=== PATIENT | female | born 1945 | race Caucasian/White ===

== ENCOUNTER → 2018-05-01 15:11 | Outpatient (CLI) | payer MEDICARE, SELFPAY | PROVIDERS: Family Provider Family Medicine; PCP Family Medicine; Visit Provider Family Medicine | DX: Z78.0 Asymptomatic menopausal state (principal); Z13.820 Encounter for screening for osteoporosis | CPT/HCPCS: 77080 ==

== ENCOUNTER → 2018-05-07 15:59 | Outpatient (CLI) | payer MEDICARE, SELFPAY | PROVIDERS: Family Provider Family Medicine; PCP Family Medicine; Visit Provider Family Medicine | DX: Z12.31 Encounter for screening mammogram for malignant neoplasm of breast (principal) | CPT/HCPCS: 77063; 77067 ==

== ENCOUNTER → 2018-05-11 08:02 | Outpatient (CLI) | payer MEDICARE, SELFPAY ==
[2018-05-11 09:18] LABS: AST(SGOT) 17 U/L (15-37); Alanine Aminotransfer ALT/SGPT 20 U/L (13-56); Albumin, Serum 3.7 g/dL (3.2-5.0); Alkaline Phosphatase 86 U/L (45-117); Anion Gap 9 (5-15); BUN 14 mg/dL (7-18); BUN/Creat Ratio 12.5 RATIO (10-20); Calcium,Total 8.7 mg/dL (8.5-10.1); Chloride 107 mmol/L (98-107); Cholesterol 154 mg/dL (200); Creatinine, Serum 1.12 mg/dL (0.55-1.02); EST Glomerular Filtration Rate 50 mL/min (>60); Est Glom Filt Rate - Afr Amer 61 mL/min (>60); Globulin 3.8 g/dL (2.2-4.2); Glucose 100 mg/dL (74-106); High Density Lipoprotein 42 mg/dL; Potassium 4.3 mmol/L (3.5-5.1); Protein, Total 7.5 g/dL (6.4-8.2); Sodium Level 143 mmol/L (136-145); Triglycerides 120 mg/dL; Very Low Density Lipoprotein 24 mg/dL (5-40)
== END ==
PROVIDERS: Family Provider Family Medicine; PCP Family Medicine; Visit Provider Family Medicine
DX: E66.3 Overweight (principal)
CPT/HCPCS: 36415; 80053; 80061

== ENCOUNTER → 2018-05-14 15:22 | Outpatient (CLI) | payer MEDICARE, SELFPAY | PROVIDERS: Family Provider Family Medicine; PCP Family Medicine; Visit Provider Family Medicine | DX: R92.8 Other abnormal and inconclusive findings on diagnostic imaging of breast (principal) | CPT/HCPCS: 76642 ==

== ENCOUNTER → 2019-05-02 | Outpatient (CLI) | payer MEDICARE, SELFPAY ==
[2019-05-02 09:28] LABS: ALB/GLOB Ratio 1.1 RATIO (0.9-2.4); AST(SGOT) 20 U/L (15-37); Alanine Aminotransfer ALT/SGPT 21 U/L (13-56); Albumin, Serum 3.8 g/dL (3.2-5.0); Alkaline Phosphatase 97 U/L (45-117); Anion Gap 9 (5-15); BUN 15 mg/dL (7-18); BUN/Creat Ratio 13.8 RATIO (10-20); Calcium,Total 8.9 mg/dL (8.5-10.1); Chloride 106 mmol/L (98-107); Cholesterol 143 mg/dL (200); Creatinine, Serum 1.09 mg/dL (0.55-1.02); EST Glomerular Filtration Rate 52 mL/min (>60); Est Glom Filt Rate - Afr Amer 63 mL/min (>60); Globulin 3.5 g/dL (2.2-4.2); Glucose 100 mg/dL (74-106); High Density Lipoprotein 44 mg/dL; Potassium 4.2 mmol/L (3.5-5.1); Protein, Total 7.3 g/dL (6.4-8.2); Sodium Level 143 mmol/L (136-145); Triglycerides 108 mg/dL; Very Low Density Lipoprotein 22 mg/dL (5-40)
== END | disposition home or self-care (01) ==
PROVIDERS: Family Provider Family Medicine; PCP Family Medicine; Referring Provider Family Medicine; Visit Provider Family Medicine
DX: Z00.00 Encounter for general adult medical examination without abnormal findings (principal); E66.01 Morbid (severe) obesity due to excess calories; Z13.6 Encounter for screening for cardiovascular disorders
CPT/HCPCS: 36415; 80053; 80061

== ENCOUNTER → 2019-05-08 | Outpatient (CLI) | payer MEDICARE, SELFPAY ==
--- NOTE | 2019-05-08 14:45 | BI_ITS ---
MAMMOGRAPHY - BILATERAL SCREENING REASON FOR EXAM: Female, 74 years old. Routine annual screening examination. PERTINENT HISTORY: Sister with breast cancer. TECHNIQUE: Digital bilateral breast arnel (3D mammographic acquisition) in the CC and MLO projections. 2-D mediolateral oblique (MLO) and craniocaudad (CC) views of both breasts were obtained. CAD: Full Field Digital Mammography with Computer Added Detection was performed. COMPARISON: Comparison is made with prior examination dated May 07, 2018 and March 24, 2016. FINDINGS: Breast Composition: There are scattered areas of fibroglandular density. There are no dominant masses or suspicious calcifications. Stable well-defined 1.2 cm x 1 cm nodule in the superior slightly medial retroareolar region of the right breast. On recent sonogram, this was demonstrated to be a small cyst. No other significant abnormalities are identified. There has been no significant change since the prior study. BI/SCREEN MAMM (CAD) W/ARNEL BILAT IMPRESSION: Stable bilateral screening mammogram. Yearly follow-up mammogram recommended. (A) ASSESSMENT CATEGORY: BIRADS Category 2: Benign. A letter regarding these results will be sent to the patient by the facility within 30 days. Approximately 10% of breast cancers are not detected by mammography. A normal mammogram should not delay biopsy of a clinically suspicious abnormality. [id number] Electronically Signed: Hernandez Moran, at 7:44 EDT , Service support ,
== END | disposition home or self-care (01) ==
LOC: OPBI 14:43
PROVIDERS: Family Provider Family Medicine; PCP Family Medicine; Referring Provider Family Medicine; Visit Provider Family Medicine
DX: Z12.31 Encounter for screening mammogram for malignant neoplasm of breast (principal)
CPT/HCPCS: 77063; 77067

== ENCOUNTER → 2020-06-30 08:40 | Outpatient (CLI) | payer MEDICARE, SELFPAY ==
[2020-06-30 09:27] LABS: AST(SGOT) 20 U/L (15-37); Alanine Aminotransfer ALT/SGPT 25 U/L (13-56); Albumin, Serum 3.9 g/dL (3.2-5.0); Alkaline Phosphatase 107 U/L (45-117); Anion Gap 3 (5-15); BUN 17 mg/dL (7-18); BUN/Creat Ratio 15.6 RATIO (10-20); Calcium,Total 9.1 mg/dL (8.5-10.1); Chloride 107 mmol/L (98-107); Cholesterol 159 mg/dL (200); Creatinine, Serum 1.09 mg/dL (0.55-1.02); EST Glomerular Filtration Rate 52 mL/min (>60); Est Glom Filt Rate - Afr Amer 63 mL/min (>60); Globulin 4.1 g/dL (2.2-4.2); Glucose 100 mg/dL (74-106); High Density Lipoprotein 53 mg/dL; Potassium 4.2 mmol/L (3.5-5.1); Sodium Level 139 mmol/L (136-145); Triglycerides 92 mg/dL; Very Low Density Lipoprotein 18 mg/dL (5-40)
== END ==
PROVIDERS: PCP Family Medicine; Referring Provider Family Medicine; Visit Provider Family Medicine
DX: Z00.00 Encounter for general adult medical examination without abnormal findings (principal)
CPT/HCPCS: 36415; 80053; 80061

== ENCOUNTER → 2020-07-14 12:05 | Outpatient (CLI) | payer MEDICARE, SELFPAY ==
--- NOTE | 2020-07-14 12:08 | BI_ITS ---
MAMMOGRAPHY - BILATERAL SCREENING REASON FOR EXAM: Female, 75 years old. Routine annual screening examination. PERTINENT HISTORY: Sister with breast cancer. TECHNIQUE: Digital bilateral breast arnel (3D mammographic acquisition) in the CC and MLO projections. 2-D mediolateral oblique (MLO) and craniocaudad (CC) views of both breasts were obtained. CAD: Full Field Digital Mammography with Computer Added Detection was performed. COMPARISON: Comparison is made with prior study dated 05/08/2019 and 05/07/2018. FINDINGS: Breast Composition: There are scattered areas of fibroglandular density. There are no dominant masses or suspicious calcifications. Stable well-defined 1.2 cm x 1 cm nodule in the superior slightly medial retroareolar region of the right breast. On prior sonogram, this was demonstrated to be a small cyst. No other significant abnormalities are identified. There has been no significant change since the prior study. BI/SCREEN MAMM (CAD) W/ARNEL BILAT IMPRESSION: Stable bilateral screening mammogram. Yearly follow-up mammogram recommended. (A) ASSESSMENT CATEGORY: BIRADS Category 2: Benign. A letter regarding these results will be sent to the patient by the facility within 30 days. Approximately 10% of breast cancers are not detected by mammography. A normal mammogram should not delay biopsy of a clinically suspicious abnormality. [id number] Electronically Signed: Hernandez Moran, at 13:03 EDT , Service support ,
--- NOTE | 2020-07-14 12:36 | BD_ITS ---
STUDY: DUAL ENERGY X-RAY ABSORPTIOMETRY / DXA REASON FOR EXAM: Female, 75 years old. DREDGE DECKHAND- SURGICAL EARLY AT 40 YRS OLD -- TAKES MULTIVITAMIN -- DOES NO EXERCISE -- HX OF PARTIAL COLON REMOVED -- PETE OF 5 INCHES TECHNIQUE: Bone Mineral Density (BMD) measurements of lumbar spine and bilateral hips were obtained. COMPARISON: Comparison is made with prior study dated 05/01/2018. FINDINGS: Lumbar Spine (L1-L4): g/cm2 (1.534) / T-score (3.0) / Z-score (4.8) Findings are suggestive of normal bone density with a low fracture risk. Left Femur Total: g/cm2 (1.193) / T-score (1.5) / Z-score (3.3) Left Femoral Neck: g/cm2 (1.254) / T-score (1.6) / Z-score (3.6) Right Femur Total: g/cm2 (1.000) / T-score (-0.1) / Z-score (1.8) Right Femoral Neck: g/cm2 (1.081) / T-score (0.3) / Z-score (2.3) BD/Dexa Bone Density Study IMPRESSION: The patient is considered normal as outlined below according to World Epi Organization (WHO) criteria with a low fracture risk. There has been improvement of bone density since the previous examination. Reference Information: The T-score is the number of standard deviations above or below the standard which is normal for young adults at their peak bone mineral density. The World Health Organization (WHO) interprets the T-scores as follows: Above -1 Normal bone density Between -1 and -2.5 Osteopenia Equal to / or below -2.5 Osteoporosis As a practical clinical guideline, osteopenia may be graded as follows: Mild -1 through -1.5 Moderate -1.6 through -2.0 Severe -2.1 through -2.4 The Z-score is the number of standard deviations above or below age-matched controls. A Z-score of less than -1.5 would be considered abnormal. References: 1. NIH Osteoporosis and Related Bone Diseases www osteo.org 2. International Society for Clinical Densitometry www iscd.org 3. National Osteoporosis Foundation www nof.org Electronically Signed: Hernandez Moran, at 8:52 EDT , Service support ,
== END ==
PROVIDERS: PCP Family Medicine; Referring Provider Family Medicine; Visit Provider Family Medicine
DX: Z00.00 Encounter for general adult medical examination without abnormal findings (principal); M81.0 Age-related osteoporosis without current pathological fracture; Z12.31 Encounter for screening mammogram for malignant neoplasm of breast
CPT/HCPCS: 77063; 77067; 77080

== ENCOUNTER → 2021-07-07 09:42 | Outpatient (CLI) | payer MEDICARE, SELFPAY ==
[2021-07-07 11:15] LABS: ALB/GLOB Ratio 0.9 RATIO (0.9-2.4); AST(SGOT) 15 U/L (15-37); Alanine Aminotransfer ALT/SGPT 18 U/L (13-56); Albumin, Serum 3.4 g/dL (3.2-5.0); Alkaline Phosphatase 109 U/L (45-117); Anion Gap 6 (5-15); BUN 16 mg/dL (7-18); BUN/Creat Ratio 15.4 RATIO (10-20); Calcium,Total 8.8 mg/dL (8.5-10.1); Chloride 107 mmol/L (98-107); Cholesterol 147 mg/dL (200); Creatinine, Serum 1.04 mg/dL (0.55-1.02); EST Glomerular Filtration Rate 54 mL/min (>60); Est Glom Filt Rate - Afr Amer 66 mL/min (>60); Globulin 3.8 g/dL (2.2-4.2); Glucose 96 mg/dL (74-106); High Density Lipoprotein 47 mg/dL; Potassium 3.8 mmol/L (3.5-5.1); Protein, Total 7.2 g/dL (6.4-8.2); Sodium Level 142 mmol/L (136-145); Triglycerides 78 mg/dL; Very Low Density Lipoprotein 16 mg/dL (5-40)
== END ==
PROVIDERS: PCP Family Medicine; Referring Provider Family Medicine; Visit Provider Family Medicine
DX: Z00.00 Encounter for general adult medical examination without abnormal findings (principal); Z13.6 Encounter for screening for cardiovascular disorders
CPT/HCPCS: 36415; 80053; 80061

== ENCOUNTER → 2022-07-11 | Outpatient (CLI) | payer MEDICARE, SELFPAY ==
[2022-07-11 10:30] LABS: ALB/GLOB Ratio 0.9 RATIO (0.9-2.4); AST(SGOT) 19 U/L (15-37); Alanine Aminotransfer ALT/SGPT 18 U/L (13-56); Albumin, Serum 3.6 g/dL (3.2-5.0); Alkaline Phosphatase 117 U/L (45-117); Anion Gap 6 (5-15); BUN 18 mg/dL (7-18); BUN/Creat Ratio 19.6 RATIO (10-20); Calcium,Total 9.2 mg/dL (8.5-10.1); Chloride 106 mmol/L (98-107); Cholesterol 153 mg/dL (200); Creatinine, Serum 0.92 mg/dL (0.55-1.02); EST Glomerular Filtration Rate 63 mL/min (>60); Est Glom Filt Rate - Afr Amer 76 mL/min (>60); Glucose 109 mg/dL (74-106); High Density Lipoprotein 53 mg/dL; Potassium 3.9 mmol/L (3.5-5.1); Protein, Total 7.6 g/dL (6.4-8.2); Sodium Level 140 mmol/L (136-145); Triglycerides 87 mg/dL; Very Low Density Lipoprotein 17 mg/dL (5-40)
[2022-07-11 11:52] LABS: Hepatitis C Antibody Non-Reactive (Nonreactive)
== END | disposition home or self-care (01) ==
LOC: LAB 08:54
PROVIDERS: PCP Family Medicine; Visit Provider Family Medicine
DX: Z00.00 Encounter for general adult medical examination without abnormal findings (principal); Z11.59 Encounter for screening for other viral diseases; Z13.6 Encounter for screening for cardiovascular disorders
CPT/HCPCS: 36415; 80053; 80061; 86803

== ENCOUNTER → 2022-07-12 | Outpatient (CLI) | payer MEDICARE, SELFPAY ==
--- NOTE | 2022-07-12 10:38 | ECHOD_ITS ---
Reason For Study: WORSENING MURMUR Procedure This was a 2D Doppler, Color Flow transthoracic echocardiogram. Exam performed in department. Left Ventricle Normal LV size. Severe concentric left ventricular hypertrophy. Left ventricular systolic function is hyperdynamic. The estimated ejection fraction is 75 %. Diastolic function is indeterminate. No regional wall motion abnormalities noted. Right Ventricle Normal RV size. Normal systolic function. Atria Normal left atrium. Normal right atrium. No doppler evidence for ASD. Mitral Valve There is no mitral annular calcification. Normal mitral valve. The mitral papillary muscle appears thickened and/or calcified. Trivial mitral valve insufficiency. Tricuspid Valve Normal tricuspid valve. Mild tricuspid valve insufficiency. Right ventricular systolic pressure estimated to be 33 mmHg. Aortic Valve Trisinus/trileaflet aortic valve. Mild focal aortic valve calcification. Pulmonic Valve The pulmonic valve is not well visualized. Great Vessels Normal sized aortic root. Pericardium/Pleural Small pericardial effusion. There are no echocardiographic indications of cardiac tamponade. MMode/2D Measurements & Calculations IVSd: 1.8 cm Ao root diam: 3.3 cm LAV(MOD-bp): 45.1 ml LVPWd: 1.8 cm LAV(MOD-bp) Indexed: 24.4 ml/m2 LAV(MOD-sp2): 44.6 ml LAV(MOD-sp4): 45.3 ml SV(MOD-sp4): 37.8 ml SV(sp4-el): 43.7 ml LVAd ap4: 22.4 cm2 LVLd ap4: 7.2 cm EDV(MOD-sp4): 55.5 ml EDV(sp4-el): 58.9 ml LVAs ap4: 10.3 cm2 LVLs ap4: 6.0 cm ESV(MOD-sp4): 17.6 ml ESV(sp4-el): 15.2 ml EF(MOD-sp4): 68.2 % EF(sp4-el): 74.2 % LA A4 area: 17.4 cm2 RA A4 area: 12.4 cm2 Time Measurements MV dec time: 0.21 sec Doppler Measurements & Calculations MV E max luther: 48.2 cm/sec Med Peak E' Luther: 6.9 cm/sec MV V2 max: 83.5 cm/sec MV A max luther: 74.2 cm/sec E/E' med: 6.9 MV max P.8 mmHg MV E/A: 0.65 MV V2 mean: 55.0 cm/sec MV mean P.3 mmHg MV V2 VTI: 27.2 cm MV dec slope: 232.2 cm/sec2 Ao V2 max: 114.0 cm/sec LV V1 max: 95.9 cm/sec Ao max P.2 mmHg LV V1 max P.7 mmHg Ao V2 mean: 76.1 cm/sec LV V1 mean P.7 mmHg Ao mean P.7 mmHg LV V1 mean: 59.7 cm/sec Ao V2 VTI: 21.6 cm LV V1 VTI: 18.5 cm PA V2 max: 114.3 cm/sec TR max luther: 273.3 cm/sec TR max P.9 mmHg ECHO/Echo Complete Interpretation Summary Left ventricular systolic function is hyperdynamic. The estimated ejection fraction is 75 %. Severe concentric left ventricular hypertrophy. The mitral papillary muscle appears thickened and/or calcified. Trivial mitral valve insufficiency. Mild tricuspid valve insufficiency. Mild focal aortic valve calcification. Small pericardial effusion. There are no echocardiographic indications of cardiac tamponade. Right ventricular systolic pressure estimated to be 33 mmHg. Diastolic function is indeterminate. Ordering Physician: Jodie Hussein Referring Physician: Jodie Hussein Performed By: Kalani Grimes RCS
== END | disposition home or self-care (01) ==
PROVIDERS: PCP Family Medicine; Referring Provider Family Medicine; Visit Provider Family Medicine
DX: R01.1 Cardiac murmur, unspecified (principal)
CPT/HCPCS: 93306

== ENCOUNTER → 2023-07-17 | Outpatient (CLI) | payer MEDICARE, SELFPAY ==
[2023-07-17 11:29] LABS: AST(SGOT) 20 U/L (15-37); Alanine Aminotransfer ALT/SGPT 18 U/L (13-56); Albumin, Serum 3.7 g/dL (3.2-5.0); Alkaline Phosphatase 111 U/L (45-117); Anion Gap 5 (5-15); BUN 16 mg/dL (7-18); BUN/Creat Ratio 16.1 RATIO (10-20); Calcium,Total 8.7 mg/dL (8.5-10.1); Chloride 108 mmol/L (98-107); Cholesterol 146 mg/dL (200); Creatinine, Serum 0.99 mg/dL (0.55-1.02); EST Glomerular Filtration Rate 57 mL/min (>60); Est Glom Filt Rate - Afr Amer 69 mL/min (>60); Globulin 3.7 g/dL (2.2-4.2); Glucose 98 mg/dL (74-106); High Density Lipoprotein 52 mg/dL; Potassium 3.8 mmol/L (3.5-5.1); Protein, Total 7.4 g/dL (6.4-8.2); Sodium Level 141 mmol/L (136-145); Triglycerides 99 mg/dL; Very Low Density Lipoprotein 20 mg/dL (5-40)
== END | disposition home or self-care (01) ==
LOC: LAB 09:44
PROVIDERS: PCP Family Medicine; Referring Provider Family Medicine; Visit Provider Family Medicine
DX: Z00.00 Encounter for general adult medical examination without abnormal findings (principal); Z13.6 Encounter for screening for cardiovascular disorders; Z13.1 Encounter for screening for diabetes mellitus
CPT/HCPCS: 36415; 80053; 80061

== ENCOUNTER → 2023-08-01 | Outpatient (CLI) | payer MEDICARE, SELFPAY ==
--- NOTE | 2023-08-01 10:47 | BD_ITS ---
STUDY: DUAL ENERGY X-RAY ABSORPTIOMETRY / DXA REASON FOR EXAM: Female, 78 years old. [id number] TECHNIQUE: Bone Mineral Density (BMD) measurements of lumbar spine and bilateral hips were obtained. COMPARISON: Comparison is made with prior study July 14, 2020. FINDINGS: Lumbar Spine (L1-L4): g/cm2 (1.426) / T-score (3.4) / Z-score (6.1) Findings are suggestive of normal bone density with a low fracture risk. Left Femur Total: g/cm2 (0.973) / T-score (0.3) / Z-score (2.3) Left Femoral Neck: g/cm2 (0.928) / T-score (0.7) / Z-score (3.0) Right Femur Total: g/cm2 (0.969) / T-score (0.2) / Z-score (2.3) Right Femoral Neck: g/cm2 (0.867) / T-score (0.2) / Z-score (2.5) The T-Scores on the most recent prior examination were: Lumbar Spine (L1-L4): There has been improvement of bone density since the previous examination. Left Femur Total: which represents a worsening of 13.3%. Right Femur Total: which represents an improvement of 3.7%. BD/Dexa Bone Density Study IMPRESSION: The patient is considered normal as outlined below according to World Epi Organization (WHO) criteria with a low fracture risk. There has been improvement of bone density since the previous examination. Reference Information: The T-score is the number of standard deviations above or below the standard which is normal for young adults at their peak bone mineral density. The World Health Organization (WHO) interprets the T-scores as follows: Above -1 Normal bone density Between -1 and -2.5 Osteopenia Equal to / or below -2.5 Osteoporosis As a practical clinical guideline, osteopenia may be graded as follows: Mild -1 through -1.5 Moderate -1.6 through -2.0 Severe -2.1 through -2.4 The Z-score is the number of standard deviations above or below age-matched controls. A Z-score of less than -1.5 would be considered abnormal. References: 1. NIH Osteoporosis and Related Bone Diseases www osteo.org 2. International Society for Clinical Densitometry www iscd.org 3. National Osteoporosis Foundation www nof.org Electronically Signed: Hernandez Moran MD at 11:05 EST ,
== END | disposition home or self-care (01) ==
LOC: OPBD 10:40
PROVIDERS: PCP Family Medicine; Referring Provider Family Medicine; Visit Provider Family Medicine
DX: Z13.820 Encounter for screening for osteoporosis (principal); Z78.0 Asymptomatic menopausal state
CPT/HCPCS: 77080

== ENCOUNTER 2023-08-12 13:42 | Emergency (ER) | payer MEDICARE, SELFPAY ==
[2023-08-12 13:43] VITALS: BP 148/91; PULSE 90; RESP 18; TEMP 36.1; O2SAT 97; BMI 42.2
--- NOTE | 2023-08-12 14:00 | EDS_ITS ---
HPI HPI - URI History of Present Illness Chief Complaint: Nosebleed Informant: patient and EMS Narrative Narrative: 78-year-old female presenting with an acute nosebleed that started spontaneously, she states she wiped and there was blood and then the bleeding became a little worse, left-sided, she states she worked on trying to get it to stop for 10 minutes before she called an ambulance. She is on no blood thinners or antiplatelet medications. States she started having cold symptoms 2 days ago, and got some Robitussin with a decongestant that I had to show my ID for. ROS ROS ED Constitutional Constitutional ED: Denies chills or fever(s) ENT ENT ED: Reports epistaxis, nasal congestion, rhinorrhea and sore throat Cardiovascular Cardiovascular: Denies chest pain or palpitations Respiratory/Chest Respiratory/Chest: Reports cough; Denies dyspnea Gastrointestinal Gastrointestinal: Denies abdominal pain, diarrhea, nausea or vomiting Genitourinary Genitourinary ED: Denies dysuria or hematuria Musculoskeletal Musculoskeletal: Denies myalgias or neck pain Integumentary Denies abscess or rash Neurologic Neurologic: Denies headache(s), paresthesias or weakness Psychiatric Psychiatric: Denies depression or suicidal thoughts Endocrine Endocrinology: Denies polydipsia or polyuria PFSH PFSH Medical History Abnormal echocardiogram Endometrial cancer Glaucoma Obesity (BMI 30-39.9) Osteoporosis Home Medications multivitamin (Daily Multiple tablet) 1 ea PO DAILY 06/09/15 [History Last Taken Unknown] diphenhydramine HCl 25 mg capsule (Benadryl) 25 mg PO TID PRN 09/21/22 [History Last Taken Unknown] turmeric root extract 500 mg capsule 500 mg PO DAILY 09/21/22 [History Last T aken Unknown] vit C 250 mg-vit E 90 mg-zinc 40 mg-copper 1 [id number] capsule (PreserVision AREDS-2) 1 tab PO BID 09/21/22 [History Last Taken Unknown] antiarthritic combination no.2 900 mg tablet (glucosamine-chondroitin) 900 mg PO BID 10/05/22 [History Last Taken Unknown] Allergy/AdvReac Type Severity Reaction Status Date / Time No Known Allergies Allergy Verified 09/21/22 10:05 Family History Sister Cancer Sister Cancer Father Diabetes Surgical History History of cholecystectomy (~10/2009) History of colon surgery (~11/19/09) History of hysterectomy History of ileostomy (03/18/10) Social History Smoking Status: Never smoker alcohol intake: never substance use type: does not use caffeine: No EXAM Physical Exam Const Vital Signs: 08/12/23 13:43 Temperature 97 F L Temperature Source Temporal Pulse Rate 90 Respiratory Rate 18 Blood Pressure 148/91 H Blood Pressure Mean 110 Pulse Ox 97 Oxygen Delivery Method Room Air Positive well nourished and well developed General Appearance ED: well developed and NAD HEENT Reports moist mucous membranes HEENT Narrative: Normal intraoral exam no blood or active bleeding posterior oropharynx. Blood in the left naris, none on the right. No active bleeding. normocephalic and atraumatic Throat: Negative for posterior oropharynx abnormal Eyes PERRL and EOMs intact bilaterally Neck no lymphadenopathy, supple and no meningeal signs Resp normal respiratory effort and clear to auscultation bilaterally Cardio no murmurs Rate: regular rate Rhythm: regular rhythm Neuro oriented x3, CN's II-XII intact bilaterally and no sensory deficits noted Sensorium / Orientation: alert Motor Exam: strength 5/5 throughout Skin Lesions: no lesions Rashes: no rashes MDM MDM MDM Narrative Medical decision making narrative: COVID and influenza swab were sent, they are negative. Vital signs are stable not excessively hypertensive. Patient received oxymetazoline 3 sprays each nostril by EMS prior to arrival. I used the spray to soak a nasal pledget, I had the patient blow her nose and blow all of the blood and a few little clots out of it, followed by placing the nasal pledget for about half an hour in the left naris. On reexamination, tissues are less edematous, and the airway in her nose is patent. There are some raw irritated areas at Kesselbach's plexus on the left anteriorly, these were cauterized superficially with silver nitrate stick there were no complications or bleeding subsequently, and good hemostasis was obtained with all of this process. Patient was reassured, this is likely related to her URI, she she is concerned that the acetaminophen-containing cold and flu medication that she is taken on was causing this. I reassured her it does not, she can continue taking that as needed, and given instructions regarding oxymetazoline spray in case she has recurrent nosebleed and when to return she is comfortable with the plan Procedures Other Procedures Procedure(s): Epistaxis care-see above. Tolerated well no complications. Discharge Plan Triage Chief Complaint: Nosebleed ED Provider: Jovan Cervantes Dx/Rx/DC Orders Clinical Impression: Viral URI with cough, Acute anterior epistaxis Instructions: ED Epistaxis (Adult) Prescriptions: No Action diphenhydramine HCl [Benadryl] 25 mg capsule 25 mg PO TID PRN PreserVision AREDS-2 250-90-40-1 mg capsule 1 tab PO BID turmeric root extract 500 mg capsule 500 mg PO DAILY glucosamine-chondroitin 900 mg tablet 900 mg PO BID multivitamin [Daily Multiple] 1 EACH tablet 1 ea PO DAILY Primary Care Provider: Jodie Hussein Referrals: Jodie Hussein, [Primary Care Provider] - 1 Week if not improving Activity Restrictions/Additional Instructions: Use the nasal spray containing oxymetazoline that you received from EMS as below: For moderate-severe nosebleed: 1 - gather supplies: nasal decongestant spray (above), cotton ball, box of tissues, garbage can, old towel that you can wrap around your chest/neck (to catch blood) 2 - soak a cotton ball in the nasal spray 3 - blow your nose, get all blood and clots out, keep chin down to prevent blood from going back into throat and forming clots 4 - after blowing the last time, quickly spray 2 sprays of the nasal spray into the affected side and sniff it back, immediately followed by twisting the soaked cotton ball into the front of your nose and then hold pressure with your fingers. 5 - if bleeding controlled, leave cotton ball in place for at least 20 min before checking to see if the bleeding is controlled by removing the cotton ball. If not able to control bleeding, always welcome to return to the ER for help. Disposition Disposition: Home, Self Care
[2023-08-12] MEDS: Silver Nitrate (BKC) 1 EACH TOPICAL (14:49)
== END 2023-08-12 15:06 | disposition home or self-care (01) ==
PROVIDERS: Emergency Provider Emergency Medicine; PCP Family Medicine; Visit Provider Emergency Medicine
DX: R04.0 Epistaxis (principal); J06.9 Acute upper respiratory infection, unspecified; Z85.89 Personal history of malignant neoplasm of other organs and systems; Z90.49 Acquired absence of other specified parts of digestive tract; Z90.710 Acquired absence of both cervix and uterus
CPT/HCPCS: 30901; 87428; 99284

== ENCOUNTER 2023-09-19 11:58 | Emergency (ER) | payer MEDICARE, SELFPAY ==
[2023-09-19 12:22] VITALS: BP 140/61; PULSE 118; RESP 20; TEMP 37.6; O2SAT 94; BMI 38.0
--- NOTE | 2023-09-19 12:46 | EKG12_ITS ---
Test Reason : DYSRHYTHMIA Blood Pressure : / mmHG Vent. Rate : 108 BPM Atrial Rate : 108 BPM P-R Int : 146 ms QRS Dur : 104 ms QT Int : 330 ms P-R-T Axes : 019 -37 059 degrees QTc Int : 442 ms Sinus tachycardia Left axis deviation Moderate voltage criteria for LVH, may be normal variant ( R in aVL , Jan product ) Cannot rule out Anterior infarct (cited on or before 02-SEP-2009) Abnormal ECG Confirmed by HIRAL MENENDEZ, GWEN ([id number]), editor continuity and script VANDANA GOMEZ ([id number]) on 09/26/2023 8:14:14 AM Referred By: KULDIP Confirmed By:GWEN BLACKMAN MD
--- NOTE | 2023-09-19 12:47 | EX.ED.DYSGE1 ---
HPI History of Present Illness Chief Complaint: Fever Informant: patient Narrative Narrative: Patient states she woke early this morning around 2 or 3 AM with pain in the left lower flank area. She tried some Biofreeze followed by some ibuprofen. This morning after getting up she started having chills and rigors. She denies cough or congestion. No vomiting or diarrhea. She denies rash or skin lesions. She denies dysuria. [facility] Medical History Abnormal echocardiogram Endometrial cancer Glaucoma Obesity (BMI 30-39.9) Osteoporosis Home Medications multivitamin (Daily Multiple tablet) 1 ea PO DAILY 06/09/15 [History Last Taken Unknown] diphenhydramine HCl 25 mg capsule (Benadryl) 25 mg PO TID PRN 09/21/22 [History Last Taken Unknown] turmeric root extract 500 mg capsule 500 mg PO DAILY 09/21/22 [History Last Taken Unknown] vit C 250 mg-vit E 90 mg-zinc 40 mg-copper 1 [id number] capsule (PreserVision AREDS-2) 1 tab PO BID 09/21/22 [History Last Taken Unknown] antiarthritic combination no.2 900 mg tablet (glucosamine-chondroitin) 900 mg PO BID 10/05/22 [History Last Taken Unknown] cephalexin 500 mg capsule 500 mg PO Q8H #30 caps 09/19/23 [Rx Last Taken Unknown] Allergy/AdvReac Type Severity Reaction Status Date / Time No Known Allergies Allergy Verified 09/19/23 12:26 Family History Sister Cancer Sister Cancer Father Diabetes Surgical History History of cholecystectomy (~10/2009) History of colon surgery (~11/19/09) History of hysterectomy History of ileostomy (03/18/10) Social History Smoking Status: Never smoker alcohol intake: never substance use type: does not use caffeine: No ROS ROS ED Constitutional Constitutional ED: Reports chills and fever(s) Eyes Eyes: Denies change in vision or discharge from eye(s) ENT ENT ED: Denies discharge from eye(s), rhinorrhea or sore throat Cardiovascular Cardiovascular: Denies chest pain or palpitations Respiratory/Chest Respiratory/Chest: Denies cough or dyspnea Gastrointestinal Gastrointestinal: Denies abdominal pain, diarrhea, nausea or vomiting Genitourinary Genitourinary ED: Denies dysuria Musculoskeletal Musculoskeletal: Reports back pain; Denies extremity pain Integumentary Denies Abrasions or rash Neurologic Neurologic: Denies headache(s) or weakness Psychiatric Psychiatric: Denies anxiety or depression Allergic/Immunologic Allergic/Immunologic ED: Denies lip swelling or urticaria EXAM Physical Exam Const Vital Signs: 09/19/23 12:22 09/19/23 12:27 09/19/23 14:09 Temperature 99.7 F H 99.6 F H Temperature Source Oral Oral Pulse Rate 118 H 103 H Respiratory Rate 20 H 20 H Respiratory Pattern Tachypnea Blood Pressure 140/61 H 136/77 H Blood Pressure Mean 87 96 Pulse Ox 94 93 Oxygen Delivery Method Room Air Room Air 09/19/23 14:11 09/19/23 16:20 09/19/23 16:21 Temperature 98.8 F Temperature Source Temporal Pulse Rate 97 97 Respiratory Rate 16 16 Respiratory Pattern Blood Pressure 119/78 119/78 Blood Pressure Mean 91 91 Pulse Ox 93 95 95 Oxygen Delivery Method Room Air Room Air Room Air Positive well nourished and well developed General Appearance ED: well developed HEENT Reports moist mucous membranes Eyes EOMs intact bilaterally Chest Wall inspection of chest normal and palpation of chest normal Resp normal respiratory effort and clear to auscultation bilaterally Cardio regular rhythm Rate: tachycardic GI non-tender Auscultation: normoactive bowel sounds Palpation: soft Extremity normal to inspection Neuro oriented x3 Neuro Narrative: No focal neurologic deficit. Skin no rashes or lesions noted MDM MDM MDM Narrative Medical decision making narrative: Patient's temperature here is 99.7. It was reported 101.7 for EMS. She will be given a dose of Tylenol. IV line established. Labwork obtained to evaluate for leukocytosis, anemia, and electrolyte derangement. Urinalysis obtained to evaluate for infection/hematuria. Chest x-ray obtained to evaluate for acute lung pathology, cardiac size, or mediastinal abnormality. Swabs for COVID and influenza obtained. Blood and urine cultures sent. Lab Data Attestation: I reviewed the patient's lab results. Labs: Laboratory Results - last 24 hr 09/19/23 09/19/23 09/19/23 12:05 13:18 13:30 WBC 3.6 L RBC 4.21 Hgb 12.5 Hct 39.3 MCV 93.3 MCH 29.7 MCHC 31.8 L RDW Std Deviation 49.8 H RDW Coeff of Christa 14.5 Plt Count 62 L MPV 11.8 Immature Gran % (Auto) 0.300 Neut % (Auto) 92.3 H Lymph % (Auto) 6.5 L Lucas % (Auto) 0.3 Eos % (Auto) 0.3 Baso % (Auto) 0.3 Absolute Neuts (auto) 3.3 Absolute Lymphs (auto) 0.23 L Nucleated RBC % 0 Differential Comment SCANNED Diff Path Review May foll Platelet Estimate MKD AUG PT 14.2 INR 1.1 APTT 33.3 Sodium 141 Potassium 4.0 Chloride 108 H Carbon Dioxide 27.0 Anion Gap 6 BUN 16 Creatinine 1.05 H Estim Creat Clear Calc 32.25 Est GFR (MDRD) Af Amer 65 Est GFR (MDRD) Non-Af 54 L BUN/Creatinine Ratio 15.2 Glucose 119 H Lactic Acid 2.2 H* Calcium 9.1 Total Bilirubin 1.20 H AST 25 ALT 21 Alkaline Phosphatase 120 H Total Protein 7.7 Albumin 3.9 Globulin 3.8 Albumin/Globulin Ratio 1.0 Urine Color Cancelled Urine Clarity Cancelled Urine pH Cancelled Ur Specific [place] Cancelled U Specif Grav (Refrac) Cancelled Urine Protein Cancelled Urine Glucose (UA) Cancelled Urine Ketones Cancelled Urine Occult Blood Cancelled Urine Nitrite Cancelled Urine Bilirubin Cancelled Urine Urobilinogen Cancelled Ur Leukocyte Esterase Cancelled Urine RBC Cancelled Urine WBC Cancelled Ur Squamous Epith Cells Cancelled Ur Transition Epith Cell Cancelled Ur Renal Epithelial Cell Cancelled Calcium Oxalate Crystal Cancelled Uric Acid Crystals Cancelled Triple Phos Crystals Cancelled Other Crystals Cancelled Amorphous Sediment Cancelled Urine Bacteria Cancelled Hyaline Casts Cancelled Fine Granular Casts Cancelled Coarse Granular Casts Cancelled Waxy Casts Cancelled RBC Casts Cancelled WBC Casts Cancelled Urine Mucus Cancelled Urine Trichomonas Cancelled Urine Yeast Cancelled 09/19/23 13:41 WBC RBC Hgb Hct MCV MCH MCHC RDW Std Deviation RDW Coeff of Christa Plt Count MPV Immature Gran % (Auto) Neut % (Auto) Lymph % (Auto) Lucas % (Auto) Eos % (Auto) Baso % (Auto) Absolute Neuts (auto) Absolute Lymphs (auto) Nucleated RBC % Differential Comment Diff Path Review Platelet Estimate PT INR APTT Sodium Potassium Chloride Carbon Dioxide Anion Gap BUN Creatinine Estim Creat Clear Calc Est GFR (MDRD) Af Amer Est GFR (MDRD) Non-Af BUN/Creatinine Ratio Glucose Lactic Acid Calcium Total Bilirubin AST ALT Alkaline Phosphatase Total Protein Albumin Globulin Albumin/Globulin Ratio Urine Color Yellow Urine Clarity Sl. Cloudy Urine pH 6.0 Ur Specific [place] 1.010 U Specif Grav (Refrac) Urine Protein 15 H Urine Glucose (UA) Normal Urine Ketones Negative Urine Occult Blood 250 H Urine Nitrite Positive H Urine Bilirubin Negative Urine Urobilinogen Normal Ur Leukocyte Esterase 500 H Urine RBC 0-5 SEEN Urine WBC 25-50 SEEN Ur Squamous Epith Cells 0-5 SEEN Ur Transition Epith Cell Ur Renal Epithelial Cell Calcium Oxalate Crystal Uric Acid Crystals Triple Phos Crystals Other Crystals Amorphous Sediment Urine Bacteria 4+ Hyaline Casts Fine Granular Casts Coarse Granular Casts Waxy Casts RBC Casts WBC Casts Urine Mucus RARE Urine Trichomonas Urine Yeast Radiography Chest X-Ray - ED: 1 View, Read by ED Physician, Chronic Changes and No Infiltrates Diagnostic Testing: Clinical Impression(s) from Imaging Studies Venous Doppler Study 09/19/23 13:41 Interpretation Summary Deep veins of the left lower extremity are patent and compressible segmentally. There is no evidence of left lower extremity deep vein thrombosis. The left great saphenous vein appears patent and compressible segmentally. Superficial thrombosis noted in left calf varicosities. Ordering Physician: Gita Dukes Referring Physician: Jodie Hussein Performed By: Cathie Saeed RVT Chest X-Ray 09/19/23 13:47 IMPRESSION: No radiographic evidence of acute cardiopulmonary disease. Electronically Signed: Kaushal Leon MD at 14:07 EST , Abdomen/Pelvis CT 09/19/23 14:41 IMPRESSION: 1. Moderate left and mild right hydroureteronephrosis without distinct obstructing stone. Consider ureteral scarring. Superimposed pyelonephritis cannot be excluded. 2. No discrete focal hepatic abnormality is identified although it is lobulated contours of the hepatic capsule perhaps indicating isoattenuating masses. Consider follow-up multiphasic study. 3. Cardiomegaly and small to medium pericardial effusion partially visualized. 4. Bilateral dependent airspace disease likely atelectasis or perhaps pneumonia. 5. Splenomegaly. 6. Fat and bowel containing ventral abdominal wall hernias associated with rectus diastases. No evidence of bowel obstruction, incarceration, or strangulation. Electronically Signed: John JoceNicolas Sanon DO at 16:37 EST , EKG Initial EKG: Attestation: I personally reviewed and interpreted this EKG as follows: Interpretation: Sinus Tachycardia (Sinus tach at 108 with no acute ischemia.) Treatment and Re-Evaluation :: Swab for COVID and influenza is negative. CBC was low white count 3.6 with 92% neutrophils. Hemoglobin is normal at 12.5. Platelet count is low at 62,000. She has no prior CBC values here to compare to. I did look in [facility] and I do not see any prior CBC values there to compare to. Chemistry studies reveal no significant findings. Creatinine is 1.05. Glucose is 119. LFTs revealed alk phos of 120 and total bilirubin of 1.20. Lactic acid is minimally elevated at 2.2. Urinalysis does reveal infection with 4+ bacteria, 25-50 white cells, and positive nitrates. No blood is noted in her urine. CT flank is obtained and reveals moderate left and mild right hydroureteronephrosis. No evidence of stone. Patient did raise concern about left lower extremity DVTs in the past and states that the left flank pain that she was experiencing last night felt like it was radiating down into her left leg. Venous ultrasound was performed and reveals no evidence of DVT. Patient's O2 sat was reading 88% on room air and she was placed on nasal cannula for short time. Since return from CT scan she has been on room air and satting between 93 to 95%. She does not feel short of breath. I did discuss with her her lab findings including the thrombocytopenia. She does not remember ever being told of having low platelet counts in the past. She has not had any obvious sources of bleeding. I will treat her with antibiotics and patient is given close return instructions. I will try to speak with her primary care physician or coverage to ensure close follow-up. Discharge Plan Triage Chief Complaint: Fever ED Provider: Gita Dukes Dx/Rx/DC Orders Clinical Impression: Pyelonephritis, Thrombocytopenia Instructions: Thrombocytopenia, ED Pyelonephritis, Female (Adult) Prescriptions: New cephalexin 500 mg capsule 500 mg PO Q8H Qty: 30 0RF No Action diphenhydramine HCl [Benadryl] 25 mg capsule 25 mg PO TID PRN PreserVision AREDS-2 250-90-40-1 mg capsule 1 tab PO BID turmeric root extract 500 mg capsule 500 mg PO DAILY glucosamine-chondroitin 900 mg tablet 900 mg PO BID multivitamin [Daily Multiple] 1 EACH tablet 1 ea PO DAILY Primary Care Provider: Jodie Hussein Referrals: Jodie Hussein DO [Primary Care Provider] - 5-7 Days Disposition Disposition: Home, Self Care
[2023-09-19 13:04] LABS: Absolute Lymphocyte Count 0.23 X10^3/uL (0.83-4.51); Absolute Neutrophil Count 3.3 X10^3/uL (2.0-7.7); Basophil# 0.01 X10^3/uL; Basophil% 0.3 % (0-1); Eosinophil# 0.01 X10^3/uL; Eosinophils% 0.3 % (0-5); Hematocrit 39.3 % (37-47); Hemoglobin 12.5 g/dL (12.0-15.0); Lymphocyte # 0.23 X10^3/ul (0.83-4.51); Lymphocyte % 6.5 % (19-41); Mean Corp Hgb Conc 31.8 g/dL (32-36); Mean Corpuscular Hgb 29.7 pg (27.0-32.0); Mean Corpuscular Volume 93.3 fL (81-99); Mean Platelet Vol. 11.8 fl (6.2-12.0); Monocyte# 0.01 X10^3/uL; Monocyte% 0.3 % (0-10); NRBC Flagged by Analyzer 0 % (0-5); Neutrophil # 3.28 X10^3/uL (2.7-7.7); Neutrophil % 92.3 % (47-70); POSITIVE COUNT YES; POSITIVE DIFFERENTIAL YES; Platelet Count 62 K/mm3 (150-450); RBC Distribution Width CV 14.5 % (11.6-14.6); RBC Distribution Width SD 49.8 fl (35.1-43.9); Red Blood Count 4.21 M/mm3 (4.2-5.4); White Blood Count 3.6 K/mm3 (4.4-11.0)
[2023-09-19 13:07] LABS: Differential Indicated SCAN CRITERIA MET
[2023-09-19 13:13] LABS: AST(SGOT) 25 U/L (15-37); Alanine Aminotransfer ALT/SGPT 21 U/L (13-56); Albumin, Serum 3.9 g/dL (3.2-5.0); Alkaline Phosphatase 120 U/L (45-117); Anion Gap 6 (5-15); BUN 16 mg/dL (7-18); BUN/Creat Ratio 15.2 RATIO (10-20); Calcium,Total 9.1 mg/dL (8.5-10.1); Chloride 108 mmol/L (98-107); Creatinine, Serum 1.05 mg/dL (0.55-1.02); EST Glomerular Filtration Rate 54 mL/min (>60); Est Glom Filt Rate - Afr Amer 65 mL/min (>60); Estimated Creatinine Clearance 32.25 ml/min; Globulin 3.8 g/dL (2.2-4.2); Glucose 119 mg/dL (74-106); Protein, Total 7.7 g/dL (6.4-8.2); Sodium Level 141 mmol/L (136-145)
[2023-09-19 13:14] LABS: Prothrombin Time (Protime)PT. 14.2 SECONDS (11.7-14.9)
[2023-09-19 13:15] LABS: International Normalized Ratio 1.1
[2023-09-19] MEDS: Acetaminophen 500 MG Tablet 1000 MG PO (13:15)
[2023-09-19] MEDS: 0.9% Normal Saline (1000mL) 1,000 ML 150 ML IV (13:15)
[2023-09-19 13:17] LABS: Partial Thromboplast Time 33.3 Seconds (24.1-36.2)
[2023-09-19 13:32] LABS: Differential Comment SCANNED; Platelet Estimate MKD DEC (ADEQ)
--- NOTE | 2023-09-19 13:41 | VDLE_ITS ---
Reason For Study: Left leg pain Procedure LEFT This is a venous duplex using B-mode, color GSV is normal. flow and spectral Doppler. CFV is compressible, spontaneous, phasic, Exam performed portable in ED. competent, and demonstrates normal A preliminary report was called and/or faxed augmentation. to ED. FV is compressible, spontaneous, phasic, competent and demonstrates normal augmentation. POP V is compressible, spontaneous, phasic, competent and demonstrates normal augmentation. T/P Trunk is compressible. PTV is compressible. LT PerV is compressible. Varicose veins throughout calf are partially compressible. VL/Venous Duplex US, Unilateral Interpretation Summary Deep veins of the left lower extremity are patent and compressible segmentally. There is no evidence of left lower extremity deep vein thrombosis. The left great saphenous vein toya ears patent and compressible segmentally. Superficial thrombosis noted in left calf varicosities. Ordering Physician: Gita Dukes Referring Physician: Jodie Hussein Performed By: Cathie Saeed RVT
--- NOTE | 2023-09-19 13:47 | RAD_ITS ---
INDICATION: fever EXAMINATION/TECHNIQUE: X-RAY - XR Chest 1 View COMPARISON: No relevant prior comparison study available FINDINGS: LINES/DEVICES: None. LUNGS: Hypoventilatory changes. No focal infiltrate is seen. No evidence of pleural effusions. MEDIASTINUM AND CARDIOVASCULAR STRUCTURES: Borderline cardiac silhouette. BONES AND SOFT TISSUES: Degenerative changes of the shoulders. RAD/Chest 1 View (Portable) IMPRESSION: No radiographic evidence of acute cardiopulmonary disease. Electronically Signed: Kaushal Leon MD at 14:07 EST ,
[2023-09-19 14:01] LABS: Lactic Acid 2.2 mmol/L (0.4-1.9)
[2023-09-19 14:09] VITALS: BP 136/77; PULSE 103; RESP 20; TEMP 37.6; O2SAT 93
[2023-09-19 14:11] VITALS: O2SAT 93
--- NOTE | 2023-09-19 14:41 | CT_ITS ---
EXAM: CT ABDOMEN AND PELVIS WITHOUT INTRAVENOUS CONTRAST CLINICAL INDICATION: left flank pain, fever TECHNIQUE: Helically acquired images were obtained of the abdomen and pelvis without intravenous contrast. This CT exam was performed using one or more of the following dose reduction techniques: automated exposure control, adjustment of the mA and/or kV according to patient size, and/or use of iterative reconstruction technique. COMPARISON: No relevant prior studies available. FINDINGS: LOWER THORAX: Cardiomegaly and small to medium pericardial effusion partially visualized. Bilateral dependent airspace disease likely atelectasis or perhaps pneumonia. ABDOMEN: LIVER: No significant abnormality. No discrete focal hepatic abnormality is identified although it is lobulated contours of the hepatic capsule perhaps indicating isoattenuating masses. GALLBLADDER AND BILE DUCTS: No significant abnormality. No calcified gallstones. No gallbladder distention or wall edema. No intra- or extrahepatic biliary ductal dilation. PANCREAS: No significant abnormality. No focal cystic mass. SPLEEN: Splenomegaly. ADRENALS: No significant abnormality. No nodules. KIDNEYS AND URETERS: Moderate left and mild right hydroureteronephrosis without distinct obstructing stone. Normal renal size and position. STOMACH AND BOWEL: Fat and bowel containing ventral abdominal wall hernias associated with rectus diastases. Colorectal anastomosis. Moderate colonic stool. No evidence of bowel obstruction. No focal inflammatory change. PELVIS: APPENDIX: No evidence of acute appendicitis. BLADDER: No significant abnormality. REPRODUCTIVE: Status post hysterectomy. ABDOMEN and PELVIS: INTRAPERITONEAL SPACE: No significant abnormality. No ascites or other fluid collection. No free air. BONES/JOINTS: Severe degenerative changes in the lower lumbar spine. Apparent osteopenia. No definite focal lytic or blastic osseous lesions. SOFT TISSUES: Ventral abdominal wall hernias as above. VASCULATURE: Atherosclerosis of the aorta and its branch vessels. Abdominal aorta is non-dilated. LYMPH NODES: No significant abnormality. No enlarged lymph nodes. CT/Abdomen/Pelvis without Cont IMPRESSION: 1. Moderate left and mild right hydroureteronephrosis without distinct obstructing stone. Consider ureteral scarring. Superimposed pyelonephritis cannot be excluded. 2. No discrete focal hepatic abnormality is identified although it is lobulated contours of the hepatic capsule perhaps indicating isoattenuating masses. Consider follow-up multiphasic study. 3. Cardiomegaly and small to medium pericardial effusion partially visualized. 4. Bilateral dependent airspace disease likely atelectasis or perhaps pneumonia. 5. Splenomegaly. 6. Fat and bowel containing ventral abdominal wall hernias associated with rectus diastases. No evidence of bowel obstruction, incarceration, or strangulation. Electronically Signed: John Sanon DO at 16:37 EST ,
[2023-09-19 14:44] LABS: Color, Urine Yellow (Yellow); Glucose, Dipstick Normal (Normal); Ketone-Dipstick Negative (Negative); Leukocyte Esterase-Dipstick 500 /ul (Negative); Nitrite-Dipstick Positive (Negative); Occult Blood-Urine 250 /ul (Negative); Protein-Dipstick 15 mg/dl (Negative); Urine Bilirubin Dipstick Negative (Negative); Urine Clarity Sl. Cloudy (Clear); Urine Urobilinogen Normal (Normal)
[2023-09-19 14:54] LABS: Bacteria 4+ /hpf (None Seen); Mucous, Urine RARE /hpf (<or=2+); Red Blood Cells-Urine 0-5 SEEN /hpf (0-5); Squamous Epithelial Cells - UA 0-5 SEEN /hpf (5-10); White Blood Cells 25-50 SEEN /hpf (0-5)
[2023-09-19] MEDS: Ceftriaxone 1 GM/50 ML BAG IV (16:19)
[2023-09-19 16:20] VITALS: BP 119/78; PULSE 97; RESP 16; O2SAT 95
[2023-09-19 16:21] VITALS: BP 119/78; PULSE 97; RESP 16; TEMP 37.1; O2SAT 95
[2023-09-19 17:30] VITALS: BP 111/55; PULSE 92; RESP 17; O2SAT 94
[2023-09-19 17:32] LABS: Reflex Lactate? Y
[2023-09-20 13:25] LABS: Pathologist Review Reviewed
--- NOTE | 2023-09-20 14:37 | ED.RN ---
THIS RN ATTEMPTED TO CALL PT HOME PHONE NUMBER. NO ANSWER, LEFT A VOICEMAIL WITH CALL BACK NUMBER. THIS RN ALSO CALLED DAUGHTER LISTED ON CONTACT LIST. NO ANSWER LEFT A VOICE MESSAGE WITH CALL BACK NUMBER. PER DR. DIAZ REVIEW PT NEEDS TO BE INFORMED TO RETURN TO THE EMERGENCY DEPARTMENT BECAUSE OF POSITIVE BLOOD CULTURE ON 09/19/23 VISIT.
--- NOTE | 2023-09-20 15:06 | ED.RN ---
PT RETURNS PHONE CALL REGARDING BLOOD CULTURE, REPORTS SHE WILL RETURN TO ED.
== END 2023-09-19 17:45 | disposition home or self-care (01) ==
PROVIDERS: Emergency Provider Emergency Medicine; PCP Family Medicine; Visit Provider Emergency Medicine
DX: N12 Tubulo-interstitial nephritis, not specified as acute or chronic (principal); D69.6 Thrombocytopenia, unspecified; Z85.89 Personal history of malignant neoplasm of other organs and systems; Z90.49 Acquired absence of other specified parts of digestive tract; Z90.710 Acquired absence of both cervix and uterus; Z86.718 Personal history of other venous thrombosis and embolism
CPT/HCPCS: 99284; 71045; 74176; 80053; 81001; 83605; 85025; 85610; 85730; 87040; 87077; 87086; 87088; 87428; 93005; 93971; J7030; A4216

== ENCOUNTER 2023-09-20 16:33 | Inpatient (IN) | payer MEDICARE, SELFPAY ==
[2023-09-20 16:34] VITALS: BP 119/57; PULSE 86; RESP 14; TEMP 37.2; O2SAT 98
--- NOTE | 2023-09-20 18:11 | EDS_ITS ---
HPI History of Present Illness Chief Complaint: Abn Labs Detail of Chief Complaint: Abnormal blood culture Informant: patient Narrative Narrative: Patient was seen here and diagnosed with pyelonephritis yesterday started on cephalexin, one of her blood cultures came back and she was advised to return. She states that the left-sided flank pain is still there but not as bad, she no longer is having fevers or chills, she still feels tired, but overall no worse, probably a little better than she was yesterday. PFSH PFSH Medical History Abnormal echocardiogram Endometrial cancer Glaucoma Obesity (BMI 30-39.9) Osteoporosis Home Medications diphenhydramine HCl 25 mg capsule (Benadryl) 25 mg PO TID PRN allergy symptoms 09/21/22 [History Last Taken Unknown] turmeric root extract 500 mg capsule 500 mg PO DAILY 09/21/22 [History Last Taken Unknown] vit C 250 mg-vit E 90 mg-zinc 40 mg-copper 1 [id number] capsule (PreserVision AREDS-2) 1 tab PO BID 09/21/22 [History Last Taken Unknown] antiarthritic combination no.2 900 mg tablet (glucosamine-chondroitin) 900 mg PO BID 10/05/22 [History Last Taken Unknown] Allergy/AdvReac Type Severity Reaction Status Date / Time No Known Allergies Allergy Verified 09/20/23 16:34 Family History Sister Cancer Sister Cancer Father Diabetes Surgical History History of cholecystectomy (~10/2009) History of colon surgery (~11/19/09) History of hysterectomy History of ileostomy (03/18/10) Social History Smoking Status: Never smoker alcohol intake: never substance use type: does not use caffeine: No ROS ROS ED Constitutional Constitutional ED: Reports malaise; Denies chills or fever(s) Eyes Eyes: Denies change in vision or diplopia ENT ENT ED: Denies rhinorrhea or sore throat Cardiovascular Cardiovascular: Denies chest pain or palpitations Respiratory/Chest Respiratory/Chest: Denies cough or dyspnea Gastrointestinal Gastrointestinal: Denies abdominal pain, diarrhea, nausea or vomiting Genitourinary Genitourinary ED: Reports as per HPI, flank pain and urinary frequency; Denies dysuria or hematuria Musculoskeletal Musculoskeletal: Reports back pain; Denies neck pain Integumentary Denies abscess or rash Neurologic Neurologic: Denies headache(s), paresthesias or weakness Psychiatric Psychiatric: Denies anxiety or suicidal thoughts EXAM Physical Exam Const Vital Signs: 09/20/23 16:34 Temperature 98.9 F Temperature Source Temporal Pulse Rate 86 Respiratory Rate 14 Blood Pressure 119/57 L Blood Pressure Mean 77 Pulse Ox 98 Oxygen Delivery Method Room Air Positive well nourished and well developed General Appearance ED: well developed and NAD HEENT Reports moist mucous membranes normocephalic and atraumatic Eyes PERRL and EOMs intact bilaterally Neck full ROM and supple Resp normal respiratory effort and clear to auscultation bilaterally Cardio regular rate, regular rhythm and no murmurs Rate: Negative for tachycardic GI non-tender and non-distended GI Narrative: Large easily reducible nontender left mid abdominal ventral hernia Auscultation: normoactive bowel sounds Palpation: soft Back/Spine no CVA tenderness General Back: other FROM Extremity normal to inspection General Extremety ED: Negative for edema, pulses abnormal or tenderness General Extremity: Negative for edema or pulses abnormal Neuro oriented x3, CN's II-XII intact bilaterally and no sensory deficits noted Sensorium / Orientation: awake and alert Motor Exam: strength 5/5 throughout Skin no rashes or lesions noted and no wounds MDM MDM MDM Narrative Medical decision making narrative: I reviewed the patient's ED visit and microbiology from yesterday. Her urine is growing out gram-negative rods, her anaerobic blood culture is growing out gram- positive rods, and her aerobic blood culture is still pending with no prelimin rashaad findings yet. This is of unknown significance. Yesterday the patient had a lactic acidosis and leukopenia, along with having fevers and chills and consistent with sepsis via SIRS definition. Her vital signs are normal right now, labs are being repeated as well as blood cultures and she is given a dose of IV Rocephin empirically. Her lactic acidosis is resolved now. She still has leukopenia. I think admitting her until there are more culture results back is most appropriate. Discussed with hospitalist. After discussing with hospitalist, and reviewing the records again, it is now evident that the lab changed/amended the blood culture result, now showing that it is a gram-negative jeremy, not a gram-positive jeremy. This is more consistent with bacteremia due to her upper urinary tract infection. Admission appropriate. Lab Data Attestation: I reviewed the patient's lab results. Labs: Laboratory Results - last 24 hr 09/20/23 18:22 WBC 4.0 L RBC 3.80 L Hgb 11.2 L Hct 35.7 L MCV 93.9 MCH 29.5 MCHC 31.4 L RDW Std Deviation 51.2 H RDW Coeff of Christa 14.7 H Plt Count 57 L MPV 12.0 Immature Gran % (Auto) 0.300 Neut % (Auto) 79.5 H Lymph % (Auto) 12.3 L Carlton % (Auto) 7.3 Eos % (Auto) 0.3 Baso % (Auto) 0.3 Absolute Neuts (auto) 3.2 Absolute Lymphs (auto) 0.49 L Nucleated RBC % 0 Differential Comment SEE COMMENT Diff Path Review May foll Platelet Estimate MOD DEC RBC Morphology N CHROM Anisocytosis RARE Macrocytosis RARE Ovalocytes RARE Sodium 138 Potassium 3.6 Chloride 107 Carbon Dioxide 28.0 Anion Gap 3 L BUN 19 H Creatinine 1.00 Est GFR (MDRD) Af Amer 69 Est GFR (MDRD) Non-Af 57 L BUN/Creatinine Ratio 19.1 Glucose 106 Lactic Acid 1.0 Calcium 9.3 Management Discussion w/another healthcare provider: Hospitalist Discharge Plan Dx/Rx/DC Orders Clinical Impression: Bacteremia due to Gram-negative bacteria, Pyelonephritis Disposition Disposition: Acute Care Hospital [facility]
[2023-09-20 18:39] LABS: Absolute Lymphocyte Count 0.49 X10^3/uL (0.83-4.51); Absolute Neutrophil Count 3.2 X10^3/uL (2.0-7.7); Basophil# 0.01 X10^3/uL; Basophil% 0.3 % (0-1); Eosinophil# 0.01 X10^3/uL; Eosinophils% 0.3 % (0-5); Hematocrit 35.7 % (37-47); Hemoglobin 11.2 g/dL (12.0-15.0); Lymphocyte # 0.49 X10^3/ul (0.83-4.51); Lymphocyte % 12.3 % (19-41); Mean Corp Hgb Conc 31.4 g/dL (32-36); Mean Corpuscular Hgb 29.5 pg (27.0-32.0); Mean Corpuscular Volume 93.9 fL (81-99); Monocyte# 0.29 X10^3/uL; Monocyte% 7.3 % (0-10); NRBC Flagged by Analyzer 0 % (0-5); Neutrophil # 3.17 X10^3/uL (2.7-7.7); Neutrophil % 79.5 % (47-70); POSITIVE COUNT YES; POSITIVE DIFFERENTIAL YES; Platelet Count 57 K/mm3 (150-450); RBC Distribution Width CV 14.7 % (11.6-14.6); RBC Distribution Width SD 51.2 fl (35.1-43.9)
[2023-09-20] MEDS: Ceftriaxone 1 GM/50 ML BAG IV ×2 (18:45→21:45)
[2023-09-20 18:47] LABS: Anion Gap 3 (5-15); BUN 19 mg/dL (7-18); BUN/Creat Ratio 19.1 RATIO (10-20); Calcium,Total 9.3 mg/dL (8.5-10.1); Chloride 107 mmol/L (98-107); EST Glomerular Filtration Rate 57 mL/min (>60); Est Glom Filt Rate - Afr Amer 69 mL/min (>60); Glucose 106 mg/dL (74-106); Potassium 3.6 mmol/L (3.5-5.1); Sodium Level 138 mmol/L (136-145)
[2023-09-20 19:03] LABS: Differential Indicated SCAN CRITERIA MET
[2023-09-20 19:04] LABS: Platelet Estimate MOD DEC (ADEQ)
[2023-09-20 19:05] LABS: Anisocytosis RARE; Macrocytosis RARE; Ovalocyte RARE; Red Cell Morphology N CHROM NORMAL (NORM C&C)
--- NOTE | 2023-09-20 19:22 | PCM.HP.STD ---
HPI - General General Date of Admission: 09/20/23 Date of Service: 09/20/23 Chief Complaint: Fever/chills, UTI HPI Narrative SAL ALMANZA, is a 78 F who initially presented to [facility] ED on 09/19/2023 with left sided flank pain and chills/rigors. Patient was found to have UTI with pyelonephritis on CT imaging but otherwise was hemodynamically stable and preferred for discharge from the ED. Was discharged on p.o. Keflex. Urine culture was positive for gram-negative rods, and blood cultures also were preliminarily positive for gram-negative rods, so patient was called and requested that she return to the ED for gram-negative bacteremia. On my interview, patient was laying comfortably in bed but did have several blankets covering her. Stated that she has had fevers and chills with rigors today as well, particularly this afternoon. States her left-sided flank pain is improved from yesterday. She otherwise denies any chest pain, shortness of breath, abdominal pain or discomfort. Denies any lightheadedness or dizziness. Patient lives at home by herself, has no issue with completing all tasks around the home on her own. No other acute concerns this time. [facility] Medical History Abnormal echocardiogram Endometrial cancer Glaucoma Obesity (BMI 30-39.9) Osteoporosis Home Medications diphenhydramine HCl 25 mg capsule (Benadryl) 25 mg PO TID PRN allergy symptoms 09/21/22 [History Last Taken Unknown] turmeric root extract 500 mg capsule 500 mg PO DAILY 09/21/22 [History Last Taken Unknown] vit C 250 mg-vit E 90 mg-zinc 40 mg-copper 1 [id number]-vqdbuo capsule (PreserVision AREDS-2) 1 tab PO BID 09/21/22 [History Last Taken Unknown] antiarthritic combination no.2 900 mg tablet (glucosamine-chondroitin) 900 mg PO BID 10/05/22 [History Last Taken Unknown] Allergy/AdvReac Type Severity Reaction Status Date / Time No Known Allergies Allergy Verified 09/20/23 16:34 Family History Sister Cancer Sister Cancer Father Diabetes Surgical History History of cholecystectomy (~10/2009) History of colon surgery (~11/19/09) History of hysterectomy History of ileostomy (03/18/10) Social History Smoking Status: Never smoker alcohol intake: never substance use type: does not use caffeine: No ROS Constitutional Constitutional: Reports chills and fever(s); Denies fatigue, malaise or weakness Eyes Eyes: Denies change in vision Cardiovascular Cardiovascular: Denies chest pain Respiratory/Chest Respiratory/Chest: Denies cough, shortness of breath at rest or shortness of breath with exertion Gastrointestinal Gastrointestinal: Denies abdominal pain, nausea or vomiting Genitourinary Genitourinary: Reports other Details: Left-sided flank pain, improving ; Denies burning urination, difficulty urinating, dysuria, hematuria, urinary frequency or urinary urgency Musculoskeletal Musculoskeletal: Denies back pain Neurologic Neurologic: Denies dizziness, focal weakness or headache(s) Vital Signs Vital Signs Vital Signs: 09/20/23 16:34 Temperature 98.9 F Temperature Source Temporal Pulse Rate 86 Respiratory Rate 14 Blood Pressure 119/57 L Blood Pressure Mean 77 Pulse Ox 98 Oxygen Delivery Method Room Air Physical Exam Const alert, oriented x3 and no apparent distress Constitutional Narrative: Pleasant elderly female, obese, sitting fairly comfortably in bed with several blankets over top her for warmth, conversing normally, no acute distress. General Appearance: cooperative and comfortable HEENT normocephalic, head/scalp atraumatic, hearing grossly normal bilaterally and nasal mucous membranes and turbinates normal HEENT Narrative: Dry mucous membranes. Eyes PERRL, EOMs intact bilaterally and conjunctivae normal Neck full ROM, no lymphadenopathy and supple Lymph Lymphatic: no lymphadenopathy noted Chest inspection of chest normal Resp normal respiratory effort, normal air movement, no use of accessory muscles and clear to auscultation bilaterally Cardio regular rate, regular rhythm, no murmurs and peripheral pulses 2+ throughout GI normal to inspection, nondistended, normoactive bowel sounds, soft to palpation, non-tender and non-distended Negative for no CVA tenderness Narrative: PureWick in place, patient tolerating without issue. Bladder / Kidney Exam: No catheter in place and bladder normal to palpation Back/Spine normal ROM Extremity normal to inspection, full ROM and no pedal edema Skin no rashes or lesions noted Neuro moves all extremities and no focal motor deficits Speech: speech normal Psych mental status grossly normal Results Lab / Micro Data 09/20/23 18:22 09/20/23 18:22 Labs: Laboratory Results - last 24 hr 09/20/23 18:22: WBC 4.0 L, RBC 3.80 L, Hgb 11.2 L, Hct 35.7 L, MCV 93.9, MCH 29.5, MCHC 31.4 L, RDW Std Deviation 51.2 H, RDW Coeff of Christa 14.7 H, Plt Count 57 L, MPV 12.0, Immature Gran % (Auto) 0.300, Neut % (Auto) 79.5 H, Lymph % (Auto) 12.3 L, Wilkin % (Auto) 7.3, Eos % (Auto) 0.3, Baso % (Auto) 0.3, Absolute Neuts (auto) 3.2, Absolute Lymphs (auto) 0.49 L, Nucleated RBC % 0, Differential Comment SEE COMMENT, Diff Path Review January foll, Platelet Estimate MOD DEC, RBC Morphology N CHROM, Anisocytosis RARE, Macrocytosis RARE, Ovalocytes RARE, Sodium 138, Potassium 3.6, Chloride 107, Carbon Dioxide 28.0, Anion Gap 3 L, BUN 19 H, Creatinine 1.00, Est GFR (MDRD) Af Amer 69, Est GFR (MDRD) Non-Af 57 L, BUN/Creatinine Ratio 19.1, Glucose 106, Lactic Acid 1.0, Calcium 9.3 Assessment & Plan Assessment/Plan (1) Bacteremia due to Gram-negative bacteria: (2) Thrombocytopenia: (3) Pyelonephritis: PLAN: Plan Patient is an 78-year-old female who presented to [facility] ED on 09/20/2023 for pyelonephritis with gram-negative bacteremia. 1. Acute pyelonephritis, gram-negative bacteremia Initial labs obtained during ED visit on 09/19; UA infectious appearing, urine culture preliminary positive for gram-negative rods, blood cultures preliminary 2 out of 2 positive for gram-negative rods. WBC count 3.6K on 09/19, low-grade fever to 99.8 F, mild sinus tachycardia to 100s, did not meet sepsis criteria. CT on pelvis 09/19 showed moderate left and mild right hydroureteronephrosis without distinct obstructing stone, with suspected superimposed pyelonephritis. Unclear if patient received any IV fluids in ED on 09/19. ? Admit under inpatient status to PCU. Will start ceftriaxone for now. Follow-up blood cultures and urine culture. S/p 1 L normal saline over 10 hours through morning of 09/21, can consider further IV fluids as needed, encouraged p.o. intake. No need for TTE given gram-negative bacteremia. Can consider repeat blood cultures on 09/21 or 09/22 to ensure clearance of bacteremia. 2. Thrombocytopenia ? Platelets 62 on 09/19, repeat platelets 57 on 09/20. No previous CBC available for baseline. Patient notably did come to the ED last month for a spontaneous nosebleed that she was unable to get to stop at home; was suspected this was secondary to an upper respiratory infection. No labs were drawn at that time. Trend platelets for now, will use SCDs for DVT prophylaxis. Can consider obtaining peripheral smear to assess for platelet clumping if smear is available. 3. Mild normocytic anemia ? Hemoglobin 12.5 on 09/19, repeat hemoglobin 11.2 on 09/20, MCV 93. No previous CBC available. Iron studies, B12 and folate ordered. Trend CBC. 4. Obesity ? BMI 37 on admit. Encouraged lifestyle modifications. Complicates hospital course, care and prognosis. 5. History of systolic heart murmur, LVH ? Evaluated by cardiology in 09/2022 after PCP noted murmur on exam. Dr. Mckeon noted a 2/6 systolic murmur at left sternal border radiating toward carotids. Echo showed severe concentric left regular hypertrophy, EF 75%, mild aortic valve calcification. Dr. Mckeon noted that the murmur was suggestive of focal aortic valve calcification with minimal stenosis, patient notably asymptomatic, no further testing required going forward. DVT prophylaxis: Lovenox CODE STATUS: Full code, verified Expected disposition: Home, 2 to 3 days Total clinical time spent by myself addressing the patient's medical issues, reviewing all the data, and collaborating with patient's care team: 55 minutes. Charges/Coding Visit Charges Inpatient E&M: 21922 Init Hosp L2
[2023-09-20 20:50] VITALS: BP 137/72; PULSE 97; RESP 18; TEMP 37.7; O2SAT 93
[2023-09-20 20:51] VITALS: BMI 37.6
[2023-09-20 20:52] VITALS: BMI 37.6
[2023-09-20] MEDS: 0.9% Normal Saline (250mL Bag) 250 ML 15 ML IV (21:45)
[2023-09-20] MEDS: 0.9% Saline Lock 10 ML Syringe IV ×2 (21:47→22:41)
[2023-09-20] MEDS: Lactated Ringers 1,000 ML 100 ML IV (22:41)
[2023-09-20 22:51] VITALS: O2SAT 96
[2023-09-20] MEDS: Acetaminophen 325 MG Tablet 650 MG PO (22:52)
[2023-09-21] VITALS (8 sets, daily range): BP systolic 104–134; BP diastolic 51–63; PULSE 79–89; RESP 16–18; TEMP 36.2–38.5; O2SAT 93–98
[2023-09-21 06:04] LABS: Hemoglobin 9.9 g/dL (12.0-15.0); Mean Corp Hgb Conc 30.9 g/dL (32-36); Mean Corpuscular Hgb 28.9 pg (27.0-32.0); Mean Corpuscular Volume 93.6 fL (81-99); Mean Platelet Vol. 11.8 fl (6.2-12.0); POSITIVE COUNT YES; RBC Distribution Width CV 14.6 % (11.6-14.6); RBC Distribution Width SD 50.6 fl (35.1-43.9); Red Blood Count 3.42 M/mm3 (4.2-5.4); White Blood Count 2.7 K/mm3 (4.4-11.0)
[2023-09-21 06:52] LABS: Anion Gap 6 (5-15); BUN 14 mg/dL (7-18); BUN/Creat Ratio 17.4 RATIO (10-20); Chloride 110 mmol/L (98-107); EST Glomerular Filtration Rate 73 mL/min (>60); Est Glom Filt Rate - Afr Amer 88 mL/min (>60); Estimated Creatinine Clearance 40.29 ml/min; Glucose 105 mg/dL (74-106); Potassium 3.7 mmol/L (3.5-5.1); Scan Indicated on CBC? Y/N YES- FLAGS NOTED; Sodium Level 141 mmol/L (136-145)
[2023-09-21 06:53] LABS: Platelet Count 41 K/mm3 (150-450)
[2023-09-21 08:19] LABS: Vitamin B12 240 pg/mL (211-911)
[2023-09-21 08:24] LABS: Differential Comment SCANNED
--- NOTE | 2023-09-21 08:31 | PN.HOSP_ITS ---
Reason for Visit Reason for Visit: Diagnoses Thrombocytopenia, unspecified (09/20/23) Tubulo-interstitial nephritis, not specified as acute or chronic (09/20/23) Bacteremia (09/20/23) Objective Data Objective Data Vital Signs: Vital Signs Temp Pulse Resp BP Pulse Ox O2 Del Method 98.5 F 80 16 104/53 L 95 Room Air 09/21/23 02:54 09/21/23 02:54 09/21/23 02:54 09/21/23 02:54 09/21/23 02:54 09/21/23 03:40 Oxygen Delivery Method Room Air Weight: 192 lb 10.944 oz Body Mass Index (BMI) 37.6 Intake & Output: Intake and Output for Last 24 Hours 09/19/23 09/20/23 09/21/23 23:59 23:59 23:59 Intake Total 450 / 450 229.25 / 229.25 Balance 450 / 450 229.25 / 229.25 Lab / Micro Data 09/21/23 05:44 09/21/23 05:44 Labs: Laboratory Results - last 24 hr 09/20/23 18:22: WBC 4.0 L, RBC 3.80 L, Hgb 11.2 L, Hct 35.7 L, MCV 93.9, MCH 29.5, MCHC 31.4 L, RDW Std Deviation 51.2 H, RDW Coeff of Christa 14.7 H, Plt Count 57 L, MPV 12.0, Immature Gran % (Auto) 0.300, Neut % (Auto) 79.5 H, Lymph % (Auto) 12.3 L, [place] % (Auto) 7.3, Eos % (Auto) 0.3, Baso % (Auto) 0.3, Absolute Neuts (auto) 3.2, Absolute Lymphs (auto) 0.49 L, Nucleated RBC % 0, Differential Comment SEE COMMENT, Diff Path Review May foll, Platelet Estimate MOD DEC, RBC Morphology N CHROM, Anisocytosis RARE, Macrocytosis RARE, Ovalocytes RARE, Sodiu m 138, Potassium 3.6, Chloride 107, Carbon Dioxide 28.0, Anion Gap 3 L, BUN 19 H , Creatinine 1.00, Est GFR (MDRD) Af Amer 69, Est GFR (MDRD) Non-Af 57 L, BUN/Creatinine Ratio 19.1, Glucose 106, Lactic Acid 1.0, Calcium 9.3 09/21/23 05:44: WBC 2.7 L, RBC 3.42 L, Hgb 9.9 L, Hct 32.0 L, MCV 93.6, MCH 28.9, MCHC 30.9 L, RDW Std Deviation 50.6 H, RDW Coeff of Christa 14.6, Plt Count 41 L*, MPV 11.8, Differential Comment SCANNED, Diff Path Review January foll, Sodium 141, Potassium 3.7, Chloride 110 H, Carbon Dioxide 25.0, Anion Gap 6, BUN 14, Creatinine 0.80, Estim Creat Clear Calc 40.29, Est GFR (MDRD) Af Amer 88, Est GFR (MDRD) Non-Af 73, BUN/Creatinine Ratio 17.4, Glucose 105, Calcium 8.0 L, Vitamin B12 240 Physical Exam Narrative Seen and examined. Patient admitted with pyelonephritis bilateral with gram-negative jeremy bact eremia. She complains of mild left lower parasacral region pain. History of UTI in the past. Patient has not seen urologist in the past. Follows PCP. Physical exam General: Alert, Oriented x3, Cooperative HEENT: Atraumatic, PERRLA, EOMI, Normocephalic Oral: Oral mucosa dry. No Gingival or Mucosal Lesions/ Ulcerations Neck: Supple, No JVD, Negative Carotid Bruits Lungs: Air entry diminished in bilateral lung bases. No crepitation/rhonchi Cardiovascular: Regular rate, Regular Rhythm, Normal S1, Normal S2, systolic murmur Abdomen: Bowel Sounds Present, Soft, Non Tender, Non-Distended : Denies dysuria. No hematuria. No polyuria/oliguria or increased frequency or urgency. Mild tenderness on the left parasacral region. No renal angle tenderness. No suprapubic tenderness. Extremities: No edema, Capillary Refill Less than 3 Seconds Skin: No rashes, No breakdown Musculoskeletal: No Tenderness to Palpation of Joints or Extremities Neurological: Cranial nerves II-XII grossly intact, DTR 2+/4. No acute focal neurological deficit. Psych/Mental Status: Flat affect Assessment & Plan Assessment/Plan (1) Bacteremia due to Gram-negative bacteria: (2) Thrombocytopenia: (3) Pyelonephritis: PLAN: Plan Patient is an 78-year-old female who presented to [facility] ED on 09/20/2023 for pyelonephritis with gram-negative bacteremia. 1. Acute pyelonephritis, gram-negative bacteremia Initial labs obtained during ED visit on 09/19; UA looks infected. Urine culture preliminary positive for gram-negative rods, blood cultures preliminary 2 out of 2 positive for gram-negative rods. Blood culture/PCR results gram- positive cocci in clusters.Patient has leukopenia, and thrombocytopenia H&H was in normal range but is decreased now. WBC count 3.6K on 09/19, low-grade fever to 99.8 F, mild sinus tachycardia to 100s, did not meet sepsis criteria. CT on pelvis 09/19 showed moderate left and mild right hydroureteronephrosis without distinct obstructing stone, with godinez spected superimposed pyelonephritis. Urology was consulted. Dr. Alas said that there is a small stone therefore plan for cystoscopy and retrograde stenting tomorrow. ID is consulted.Discussed with ID. PCR bacterial identification of GPC in clusters are pending and will wait. 2. Thrombocytopenia, unclear whether acute or chronic: ? Platelets 62 on 09/19, repeat platelets 57 on 09/20. No previous CBC available for baseline. 3. Mild normocytic anemia ? Hemoglobin 12.5 on 09/19, repeat hemoglobin 11.2 on 09/20, MCV 93. No previous CBC available. Iron studies, B12 and folate ordered. Trend CBC. 4. Obesity ? BMI 37 on admit. Encouraged lifestyle modifications. Complicates hospital course, care and prognosis. 5. History of systolic heart murmur, LVH ? Evaluated by cardiology in 09/2022 after PCP noted murmur on exam. Dr. Mckeon noted a 2/6 systolic murmur at left sternal border radiating toward carotids. Echo showed severe concentric left regular hypertrophy, EF 75%, mild aortic valve calcification. Dr. Mckeon noted that the murmur was suggestive of focal aortic valve calcification with minimal stenosis, patient notably asymptomatic, no further testing required going forward. DVT prophylaxis: Lovenox CODE STATUS: Full code, verified Expected disposition: Home, 2 to 3 days Microbiology Past 72 Hours 09/20/23 18:37 Blood Culture (Wb) - Venous Blood Culture - Preliminary Laboratory Results 09/20/23 18:22: WBC 4.0 L, RBC 3.80 L, Hgb 11.2 L, Hct 35.7 L, MCV 93.9, MCH 29.5, MCHC 31.4 L, RDW Std Deviation 51.2 H, RDW Coeff of Christa 14.7 H, Plt Count 57 L, MPV 12.0, Immature Gran % (Auto) 0.300, Neut % (Auto) 79.5 H, Lymph % (Auto) 12.3 L, [place] % (Auto) 7.3, Eos % (Auto) 0.3, Baso % (Auto) 0.3, Absolute Neuts (auto) 3.2, Absolute Lymphs (auto) 0.49 L, Nucleated RBC % 0, Differential Comment SEE COMMENT, Diff Path Review Reviewed, Platelet Estimate MOD DEC, RBC Morphology N CHROM, Anisocytosis RARE, Macrocytosis RARE, Ovalocytes RARE, Sodium 138, Potassium 3.6, Chloride 107, Carbon Dioxide 28.0, Anion Gap 3 L, BUN 19 H, Creatinine 1.00, Est GFR (MDRD) Af Amer 69, Est GFR (MDRD) Non-Af 57 L, BUN/Creatinine Ratio 19.1, Glucose 106, Lactic Acid 1.0, Calcium 9.3 09/21/23 05:44: WBC 2.7 L, RBC 3.42 L, Hgb 9.9 L, Hct 32.0 L, MCV 93.6, MCH 28.9, MCHC 30.9 L, RDW Std Deviation 50.6 H, RDW Coeff of Christa 14.6, Plt Count 41 L*, MPV 11.8, Differential Comment SCANNED, Diff Path Review January, Sodium 1 41, Potassium 3.7, Chloride 110 H, Carbon Dioxide 25.0, Anion Gap 6, BUN 14, Creatinine 0.80, Estim Creat Clear Calc 40.29, Est GFR (MDRD) Af Amer 88, Est GFR (MDRD) Non-Af 73, BUN/Creatinine Ratio 17.4, Glucose 105, Calcium 8.0 L, Iron 22 L, TIBC 219 L, Iron Saturation 10.0 L, Vitamin B12 240, Folate 30.70 Charges/Coding Visit Charges Inpatient E&M: 15811 Subs Hosp L2
[2023-09-21] MEDS: Lactated Ringers 1,000 ML 100 ML IV (08:57)
[2023-09-21] MEDS: Ceftriaxone 2 GM in 0.9% Normal Saline (50mL MB+) 50 ML IV (09:19)
[2023-09-21 10:12] LABS: Iron 22 ug/dL (50-170); Iron Binding Capacity,Total 219 ug/dL (250-450)
--- NOTE | 2023-09-21 10:22 | CON.PCM.UR_ITS ---
HPI Consult Data Date of Consult: 09/21/23 HPI Narrative Reason for Consultation: sepsis stone HPI Narrative: SAL ALMANZA, is a 78 F who presents with sepsis on review of ct scan has a LEFT proximal stone causing obstruction will add on tomorrow for a cysto left stent placement in the OR [facility] Medical History Abnormal echocardiogram Endometrial cancer Glaucoma Obesity (BMI 30-39.9) Osteoporosis Home Medications diphenhydramine HCl 25 mg capsule (Benadryl) 25 mg PO TID PRN allergy symptoms 09/21/22 [History Last Taken Unknown] turmeric root extract 500 mg capsule 500 mg PO DAILY 09/21/22 [History Last Taken Unknown] vit C 250 mg-vit E 90 mg-zinc 40 mg-copper 1 [id number] capsule (PreserVision AREDS-2) 1 tab PO BID 09/21/22 [History Last Taken Unknown] antiarthritic combination no.2 900 mg tablet (glucosamine-chondroitin) 900 mg PO BID 10/05/22 [History Last Taken Unknown] Allergy/AdvReac Type Severity Reaction Status Date / Time No Known Allergies Allergy Verified 09/20/23 16:34 Family History Sister Cancer Sister Cancer Father Diabetes Surgical History History of cholecystectomy (~10/2009) History of colon surgery (~11/19/09) History of hysterectomy History of ileostomy (03/18/10) Social History Smoking Status: Never smoker alcohol intake: never substance use type: does not use caffeine: No Lab / Micro Data 09/21/23 05:44 09/21/23 05:44 Labs: Laboratory Results - last 24 hr 09/20/23 18:22: WBC 4.0 L, RBC 3.80 L, Hgb 11.2 L, Hct 35.7 L, MCV 93.9, MCH 29.5, MCHC 31.4 L, RDW Std Deviation 51.2 H, RDW Coeff of Christa 14.7 H, Plt Count 57 L, MPV 12.0, Immature Gran % (Auto) 0.300, Neut % (Auto) 79.5 H, Lymph % (Auto) 12.3 L, [place] % (Auto) 7.3, Eos % (Auto) 0.3, Baso % (Auto) 0.3, Absolute Neuts (auto) 3.2, Absolute Lymphs (auto) 0.49 L, Nucleated RBC % 0, Differential Comment SEE COMMENT, Diff Path Review January daylin, Platelet Estimate MOD DEC, RBC Morphology N CHROM, Anisocytosis RARE, Macrocytosis RARE, Ovalocytes RARE, Sod ium 138, Potassium 3.6, Chloride 107, Carbon Dioxide 28.0, Anion Gap 3 L, BUN 19 H, Creatinine 1.00, Est GFR (MDRD) Af Amer 69, Est GFR (MDRD) Non-Af 57 L, BUN/Creatinine Ratio 19.1, Glucose 106, Lactic Acid 1.0, Calcium 9.3 09/21/23 05:44: WBC 2.7 L, RBC 3.42 L, Hgb 9.9 L, Hct 32.0 L, MCV 93.6, MCH 28.9, MCHC 30.9 L, RDW Std Deviation 50.6 H, RDW Coeff of Christa 14.6, Plt Count 41 L*, MPV 11.8, Differential Comment SCANNED, Diff Path Review January daylin, Sodium 141, Potassium 3.7, Chloride 110 H, Carbon Dioxide 25.0, Anion Gap 6, BUN 14, Creatinine 0.80, Estim Creat Clear Calc 40.29, Est GFR (MDRD) Af Amer 88, Est GFR (MDRD) Non-Af 73, BUN/Creatinine Ratio 17.4, Glucose 105, Calcium 8.0 L, Iron 22 L, TIBC 219 L, Iron Saturation 10.0 L, Vitamin B12 240, Folate 30.70
[2023-09-21 13:02] LABS: Pathologist Review Reviewed
--- NOTE | 2023-09-21 14:50 | CASEMGMT ---
RN?CM?MASS SPECTROSCOPIST?CM?to room to meet with patient for initial transition planning/care coordination?assessment.?RN?CM?introduced self and role at [facility].? Pt voices understanding and consents to?assessment?at this time.? Pt sitting up in chair in room in no distress at this time.? 2 dtr's are in room visiting and pt agreeable to them being present during assessment. Pt is A/O at this time and answers all questions appropriately.??She is [facility]. Care providers, pharmacy, and demographics verified/updated at this time. PCP: Dr Jodie Hussein Specialists:none Preferred Pharmacy: [facility] @ discharge Insurance: [employer] Prescription Benefit: Yes? Living Will/HPOA:?Has done both LW and HCPOA, who is her dtr, Indira Bowles. LNOK: 4 daughters. Dtr, Indira, is HCPOA. Living Arrangements: Lives alone in one-story apt w/no steps to enter. Independent w/ADL's and IADL's and manages her own medications and appts. Transportation:?Pt states drives self and states no transportation concerns at this time.?Indira will take her home @ discharge. DME: States has the following DME:?quad cane that she uses. Pt also has a rollator available, but does not use it. Dtr's did request medical alert information and this was provided by this RN BROOKE . Pt and dtr's state no need for further DME at this time.? HHC/SNF: No hx of SNF. Pt has had HHC in the past, but they do not remember name of agency. Pt wishes to return home and states has no concerns with going home at time of discharge.? CM?to follow for home oxygen needs and any further discharge planning/needs.? Pt and dtr's voice no further concerns/needs at this time.? Advised them to ask for?CM?if any further questions/concerns/needs arise.? They voice understanding. PLAN:??Home Jacinto BSN?RN?CM
--- NOTE | 2023-09-21 14:56 | CON.PCM.ID_ITS ---
Assessment & Plan Assessment/Plan (1) Bacteremia due to Gram-negative bacteria: (2) Pyelonephritis: PLAN: GNR bacteremia due to pyelo. Ucx with klebs and GNR. Urology following. Cont ceftriaxone. Will follow, thank you HPI Consult Data Date of Consult: 09/21/23 HPI Narrative Reason for Consultation: bacteremia HPI Narrative: SAL ALMANZA, is a 78 F who presented with about 2 weeks L sided flank pain, shakes and chills. Denies dysuria. Recently started on keflex, but came back due to (+) bcx. Admitted on ceftriaxone, feeling better. CT done and urology consulted. No n/v/d. Full ROS performed and neg except as noted above. [facility] Medical History Abnormal echocardiogram Endometrial cancer Glaucoma Obesity (BMI 30-39.9) Osteoporosis Home Medications diphenhydramine HCl 25 mg capsule (Benadryl) 25 mg PO TID PRN allergy symptoms 09/21/22 [History Last Taken Unknown] turmeric root extract 500 mg capsule 500 mg PO DAILY 09/21/22 [History Last Taken Unknown] vit C 250 mg-vit E 90 mg-zinc 40 mg-copper 1 [id number]-cvcltu capsule (PreserVision AREDS-2) 1 tab PO BID 09/21/22 [History Last Taken Unknown] antiarthritic combination no.2 900 mg tablet (glucosamine-chondroitin) 900 mg PO BID 10/05/22 [History Last Taken Unknown] Allergy/AdvReac Type Severity Reaction Status Date / Time No Known Allergies Allergy Verified 09/20/23 16:34 Family History Sister Cancer Sister Cancer Father Diabetes Surgical History History of cholecystectomy (~10/2009) History of colon surgery (~11/19/09) History of hysterectomy History of ileostomy (03/18/10) Social History Smoking Status: Never smoker alcohol intake: never substance use type: does not use caffeine: No Physical Exam Const alert, oriented x3 and no apparent distress General Appearance: cooperative HEENT normocephalic and head/scalp atraumatic Neck supple and No nodes Resp normal air movement and clear to auscultation bilaterally Cardio regular rate and regular rhythm GI soft to palpation, non-tender and non-distended Extremity General Extremity: Negative for edema Skin no rashes or lesions noted Neuro CN's II-XII intact bilaterally Lab / Micro Data Attestation: I reviewed the patient's lab results. 09/21/23 05:44 09/21/23 05:44 Labs: Laboratory Results - last 24 hr 09/20/23 18:22: WBC 4.0 L, RBC 3.80 L, Hgb 11.2 L, Hct 35.7 L, MCV 93.9, MCH 29.5, MCHC 31.4 L, RDW Std Deviation 51.2 H, RDW Coeff of Christa 14.7 H, Plt Count 57 L, MPV 12.0, Immature Gran % (Auto) 0.300, Neut % (Auto) 79.5 H, Lymph % (Auto) 12.3 L, [place] % (Auto) 7.3, Eos % (Auto) 0.3, Baso % (Auto) 0.3, Absolute Neuts (auto) 3.2, Absolute Lymphs (auto) 0.49 L, Nucleated RBC % 0, Differential Comment SEE COMMENT, Diff Path Review Reviewed, Platelet Estimate MOD DEC, RBC Morphology N CHROM, Anisocytosis RARE, Macrocytosis RARE, Ovalocytes RARE, Sodium 138, Potassium 3.6, Chloride 107, Carbon Dioxide 28.0, Anion Gap 3 L, BUN 19 H, Creatinine 1.00, Est GFR (MDRD) Af Amer 69, Est GFR (MDRD) Non-Af 57 L, BUN/Creatinine Ratio 19.1, Glucose 106, Lactic Acid 1.0, Calcium 9.3 09/21/23 05:44: WBC 2.7 L, RBC 3.42 L, Hgb 9.9 L, Hct 32.0 L, MCV 93.6, MCH 28.9, MCHC 30.9 L, RDW Std Deviation 50.6 H, RDW Coeff of Christa 14.6, Plt Count 41 L*, MPV 11.8, Differential Comment SCANNED, Diff Path Review January, Sodium 141, Potassium 3.7, Chloride 110 H, Carbon Dioxide 25.0, Anion Gap 6, BUN 14, Creatinine 0.80, Estim Creat Clear Calc 40.29, Est GFR (MDRD) Af Amer 88, Est GFR (MDRD) Non-Af 73, BUN/Creatinine Ratio 17.4, Glucose 105, Calcium 8.0 L, Iron 22 L, TIBC 219 L, Iron Saturation 10.0 L, Vitamin B12 240, Folate 30.70 Micro: Microbiology 09/20/23 18:37 Blood Culture (Wb) - Venous Blood Culture - Preliminary
[2023-09-21] MEDS: Acetaminophen 325 MG Tablet 650 MG PO (15:51)
[2023-09-21] MEDS: 0.9% Saline Lock 10 ML Syringe IV (17:00)
[2023-09-21] MEDS: Ondansetron 4 MG/2 ML Vial IV (17:00)
[2023-09-22] VITALS (11 sets, daily range): BP systolic 99–125; BP diastolic 51–67; PULSE 70–84; RESP 14–18; TEMP 36.4–37.2; O2SAT 91–97; BMI 37.6
[2023-09-22 07:17] LABS: Absolute Lymphocyte Count 0.61 X10^3/uL (0.83-4.51); Absolute Neutrophil Count 1.2 X10^3/uL (2.0-7.7); Basophil# 0.01 X10^3/uL; Basophil% 0.5 % (0-1); Hematocrit 32.7 % (37-47); Hemoglobin 10.5 g/dL (12.0-15.0); Lymphocyte # 0.61 X10^3/ul (0.83-4.51); Lymphocyte % 28.9 % (19-41); Mean Corp Hgb Conc 32.1 g/dL (32-36); Mean Corpuscular Hgb 29.2 pg (27.0-32.0); Mean Corpuscular Volume 91.1 fL (81-99); Mean Platelet Vol. 11.7 fl (6.2-12.0); Monocyte# 0.25 X10^3/uL; Monocyte% 11.8 % (0-10); NRBC Flagged by Analyzer 0 % (0-5); Neutrophil # 1.23 X10^3/uL (2.7-7.7); Neutrophil % 58.3 % (47-70); POSITIVE COUNT YES; RBC Distribution Width CV 14.6 % (11.6-14.6); RBC Distribution Width SD 48.6 fl (35.1-43.9); Red Blood Count 3.59 M/mm3 (4.2-5.4); White Blood Count 2.1 K/mm3 (4.4-11.0)
[2023-09-22 07:23] LABS: Platelet Count 37 K/mm3 (150-450)
[2023-09-22 08:12] LABS: Anion Gap 7 (5-15); BUN 13 mg/dL (7-18); BUN/Creat Ratio 15.5 RATIO (10-20); Calcium,Total 8.6 mg/dL (8.5-10.1); Chloride 110 mmol/L (98-107); Creatinine, Serum 0.84 mg/dL (0.55-1.02); EST Glomerular Filtration Rate 70 mL/min (>60); Est Glom Filt Rate - Afr Amer 84 mL/min (>60); Estimated Creatinine Clearance 38.37 ml/min; Glucose 105 mg/dL (74-106); Potassium 3.6 mmol/L (3.5-5.1); Sodium Level 140 mmol/L (136-145)
[2023-09-22 08:27] LABS: International Normalized Ratio 1.2; Prothrombin Time (Protime)PT. 15.2 SECONDS (11.7-14.9)
[2023-09-22 08:29] LABS: Partial Thromboplast Time 43.9 Seconds (24.1-36.2)
[2023-09-22 09:03] LABS: Platelet Estimate MKD DEC (ADEQ)
[2023-09-22] MEDS: Ceftriaxone 2 GM in 0.9% Normal Saline (50mL MB+) 50 ML IV (09:49)
[2023-09-22] MEDS: 0.9% Saline Lock 10 ML Syringe IV (09:49)
[2023-09-22 09:57] LABS: AST(SGOT) 35 U/L (15-37); Alanine Aminotransfer ALT/SGPT 24 U/L (13-56); Albumin, Serum 2.9 g/dL (3.2-5.0); Alkaline Phosphatase 108 U/L (45-117); Bilirubin, Direct 0.19 mg/dL (0.00-0.30); GGTP 63 U/L (5-55); Globulin 3.4 g/dL (2.2-4.2); Protein, Total 6.3 g/dL (6.4-8.2)
[2023-09-22 12:07] LABS: Pathologist Review Reviewed
[2023-09-22 12:19] LABS: Pathologist Review Reviewed
--- NOTE | 2023-09-22 14:03 | PCM.PN.ID ---
Physical Exam Narrative Feeling better, procedure planned, no fever Const alert and no apparent distress Resp normal air movement and clear to auscultation bilaterally Cardio regular rate and regular rhythm GI soft to palpation, non-tender and non-distended Skin no rashes or lesions noted ID ID: Route of nutrition/ use of supplements: [] Nutritional Intake: [] IV Site: [] [place] Catheter: [] Assessment & Plan Assessment/Plan (1) Bacteremia due to Gram-negative bacteria: (2) Pyelonephritis: PLAN: GNR bacteremia due to pyelo. Ucx with klebs and GNR. Urology following. Cont ceftriaxone. Plan on po abx at discharge. Will follow
--- NOTE | 2023-09-22 14:24 | PCM.PN.HOSP ---
Reason for Visit Reason for Visit: Diagnoses Thrombocytopenia, unspecified (09/20/23) Tubulo-interstitial nephritis, not specified as acute or chronic (09/20/23) Bacteremia (09/20/23) Objective Data Objective Data Vital Signs: Vital Signs Temp Pulse Resp BP Pulse Ox O2 Del Method 98.1 F 73 14 114/54 L 94 Room Air 09/22/23 09:46 09/22/23 09:46 09/22/23 09:46 09/22/23 09:46 09/22/23 09:46 09/22/23 09:46 Oxygen Delivery Method Room Air Weight: 192 lb 10.944 oz Body Mass Index (BMI) 37.6 Intake & Output: Intake and Output for Last 24 Hours 09/20/23 09/21/23 09/22/23 23:59 23:59 23:59 Intake Total 450 / 450 2237.58 / 2237.58 170 / 170 Balance 450 / 450 2237.58 / 2237.58 170 / 170 Lab / Micro Data 09/22/23 06:44 09/22/23 06:44 Labs: Laboratory Results - last 24 hr 09/21/23 05:44: Diff Path Review Reviewed 09/22/23 06:44: WBC 2.1 L, RBC 3.59 L, Hgb 10.5 L, Hct 32.7 L, MCV 91.1, MCH 29.2, MCHC 32.1, RDW Std Deviation 48.6 H, RDW Coeff of Christa 14.6, Plt Count 37 L*, MPV 11.7, Immature Gran % (Auto) 0.500, Neut % (Auto) 58.3, Lymph % (Auto) 28.9, [place] % (Auto) 11.8 H, Eos % (Auto) 0.0, Baso % (Auto) 0.5, Absolute Neuts (auto) 1.2 L, Absolute Lymphs (auto) 0.61 L, Nucleated RBC % 0, Diff Path Review Reviewed, Platelet Estimate MKD DEC, PT 15.2 H, INR 1.2, APTT 43.9 H, Sodium 140, Potassium 3.6, Chloride 110 H, Carbon Dioxide 23.0, Anion Gap 7, BUN 13, Creatinine 0.84, Estim Creat Clear Calc 38.37, Est GFR (MDRD) Af Amer 84, Est GFR (MDRD) Non-Af 70, BUN/Creatinine Ratio 15.5, Glucose 105, Calcium 8.6, Total Bilirubin 0.60, Direct Bilirubin 0.19, GGT 63 H, AST 35, ALT 24, Alkaline Phosphatase 108, Total Protein 6.3 L, Albumin 2.9 L, Globulin 3.4 Micro: Microbiology 09/20/23 18:37 Blood Culture (Wb) - Venous Bacteria Detection (PCR) - Final Staphylococcus epidermidis 09/20/23 18:37 Blood Culture (Wb) - Venous Blood Culture - Preliminary Staphylococcus epidermidis Physical Exam Narrative Seen and examined. Patient admitted with pyelonephritis bilateral with gram-negative jeremy bacteremia. Severe thrombocytopenia. Still has mild left lower parasacral region pain. History of UTI in the past. Physical exam General: Alert, Oriented x3, Cooperative HEENT: Atraumatic, PERRLA, EOMI, Normocephalic Oral: Oral mucosa dry. No Gingival or Mucosal Lesions/ Ulcerations Neck: Supple, No JVD, Negative Carotid Bruits Lungs: Air entry diminished in bilateral lung bases. No crepitation/rhonchi Cardiovascular: Regular rate, Regular Rhythm, Normal S1, Normal S2, systolic murmur Abdomen: Bowel Sounds Present, Soft, Non Tender, Non-Distended : Denies dysuria. No hematuria. No polyuria/oliguria or increased frequency or urgency. Mild tenderness on the left parasacral region. No renal angle tenderness. No suprapubic tenderness. Extremities: No edema, Capillary Refill Less than 3 Seconds Skin: No rashes, No breakdown Musculoskeletal: No Tenderness to Palpation of Joints or Extremities Neurological: Cranial nerves II-XII grossly intact, DTR 2+/4. No acute focal neurological deficit. Psych/Mental Status: Flat affect Assessment & Plan Assessment/Plan (1) Bacteremia due to Gram-negative bacteria: (2) Thrombocytopenia: (3) Pyelonephritis: PLAN: Plan Patient is an 78-year-old female who presented to [facility] ED on 09/20/2023 for pyelonephritis with gram-negative bacteremia. 1. Acute pyelonephritis, gram-negative bacteremia Initial labs obtained during ED visit on 09/19; UA looks infected. Urine culture preliminary positive for gram-negative rods, blood cultures preliminary 2 out of 2 positive for gram-negative rods. Blood culture/PCR results gram-positive cocci in clusters.Patient has leukopenia, and thrombocytopenia H&H was in normal range but is decreased now. WBC count 3.6K on 09/19, low-grade fever to 99.8 F, mild sinus tachycardia to 100s, did not meet sepsis criteria. CT on pelvis 09/19 showed moderate left and mild right hydroureteronephrosis without distinct obstructing stone, with suspected superimposed pyelonephritis. Urology was consulted. Dr. Alas said that there is a small stone therefore plan for cystoscopy and retrograde stenting tomorrow. ID is consulted.Discussed with ID. PCR bacterial identification of GPC in clusters are pending and will wait. 09/22: Blood culture, bacterial detection PCR shows Staph epidermidis. Urine culture shows Klebsiella pneumonia more than 100,000 colonies. ESBL negative.Plan for cystoscopy today. 2. Severe thrombocytopenia, unclear whether acute or chronic: ? Platelets 62 on 09/19, repeat platelets 57 on 09/20. No previous CBC available for baseline. 09/22: Patient platelet count very low 37,000. Patient also has leukopenia and anemia. 3. Mild normocytic anemia ? Hemoglobin 12.5 on 09/19, repeat hemoglobin 11.2 on 09/20, MCV 93. No previous CBC available. Iron studies, B12 and folate ordered. Trend CBC. 09/22: Her hemoglobin further decreased to 10.5. WBC count 2.1 thousand. ALC 0.61. ANC 1.2. Clinisync also check but no prior lab values before 09/19.Unclear whether it is due to medication side effect as patient on multiple OTC/herbal medications including Benadryl antiarthritic combination and turmeric root. H1 antagonist including Benadryl has known side effect of hemolytic anemia, thrombocytopenia, agranulocytosis. Pancytopenia and leukopenia. These adverse effects not listed with hydroxyzine. But review of literature shows it may be H1 antagonist adverse effects. Patient takes Benadryl for sleep which is stated to melatonin. 4. Obesity ? BMI 37 on admit. Encouraged lifestyle modifications. Complicates hospital course, care and prognosis. 5. History of systolic heart murmur, LVH ? Evaluated by cardiology in 09/2022 after PCP noted murmur on exam. Dr. Mckeon noted a 2/6 systolic murmur at left sternal border radiating toward carotids. Echo showed severe concentric left regular hypertrophy, EF 75%, mild aortic valve calcification. Dr. Mckeon noted that the murmur was suggestive of focal aortic valve calcification with minimal stenosis, patient notably asymptomatic, no further testing required going forward. Total time of the visit including total time spent in counseling or coordination of care, (more than 50% of the total time, spent in obtaining medical information from nurses and other ancillary care providers,explaining to the patient about labs, imaging, diagnosis and management of active complex medical conditions), severe thrombocytopenia, discussion with patient's daughter regarding the causes of thrombocytopenia, clinical course of pyelonephritis and bilateral hydronephrosis, review of labs and imaging is 40 minutes. Microbiology Past 72 Hours 09/20/23 18:37 Blood Culture (Wb) - Venous Blood Culture - Preliminary Laboratory Results 09/20/23 18:22: WBC 4.0 L, RBC 3.80 L, Hgb 11.2 L, Hct 35.7 L, MCV 93.9, MCH 29.5, MCHC 31.4 L, RDW Std Deviation 51.2 H, RDW Coeff of Christa 14.7 H, Plt Count 57 L, MPV 12.0, Immature Gran % (Auto) 0.300, Neut % (Auto) 79.5 H, Lymph % (Auto) 12.3 L, [place] % (Auto) 7.3, Eos % (Auto) 0.3, Baso % (Auto) 0.3, Absolute Neuts (auto) 3.2, Absolute Lymphs (auto) 0.49 L, Nucleated RBC % 0, Differential Comment SEE COMMENT, Diff Path Review Reviewed, Platelet Estimate MOD DEC, RBC Morphology N CHROM, Anisocytosis RARE, Macrocytosis RARE, Ovalocytes RARE, Sodium 138, Potassium 3.6, Chloride 107, Carbon Dioxide 28.0, Anion Gap 3 L, BUN 19 H, Creatinine 1.00, Est GFR (MDRD) Af Amer 69, Est GFR (MDRD) Non-Af 57 L, BUN/Creatinine Ratio 19.1, Glucose 106, Lactic Acid 1.0, Calcium 9.3 09/21/23 05:44: WBC 2.7 L, RBC 3.42 L, Hgb 9.9 L, Hct 32.0 L, MCV 93.6, MCH 28.9, MCHC 30.9 L, RDW Std Deviation 50.6 H, RDW Coeff of Christa 14.6, Plt Count 41 L*, MPV 11.8, Differential Comment SCANNED, Diff Path Review January foll, Sodium 141, Potassium 3.7, Chloride 110 H, Carbon Dioxide 25.0, Anion Gap 6, BUN 14, Creatinine 0.80, Estim Creat Clear Calc 40.29, Est GFR (MDRD) Af Amer 88, Est GFR (MDRD) Non-Af 73, BUN/Creatinine Ratio 17.4, Glucose 105, Calcium 8.0 L, Iron 22 L, TIBC 219 L, Iron Saturation 10.0 L, Vitamin B12 240, Folate 30.70 Charges/Coding Visit Charges Inpatient E&M: 67350 Subs Hosp L3
--- NOTE | 2023-09-22 17:05 | PCM.OPRPT ---
Report of Operation Date of Procedure: 09/22/23 Pre-Operative Diagnosis: Obstructing left ureteral calculus Post-Operative Diagnosis: Same Surgery/Procedure Performed:: Cystoscopy, left retrograde pyelogram and left stent placement Description of Surgical Findings:: Patient was taken back to the operating room after induction of general anesthesia, the patient was placed in dorsolithotomy position. The urethra and genitals were prepped and draped in usual sterile fashion. Using a 21 [place] rigid cystourethroscope the entire length of the urethra was normal then went into the bladder. Identified the trigone the left and right ureteral orifice. I then cannulated the Left ureteral orifice and advanced a wire up into the kidney. I then backloaded a 5 [place] open ended catheter over the wire and injected contrast to delineate the anatomy. After the retrograde was performed I then used fluoroscopic images and guidance to advanced a wire up into the kidney and over the 0.038 glidewire I advanced a 6 [place] by 26 cm double pigtail stent. I then pulled the 0.038 Glidewire off and the stent coiled in the kidney bladder good position. The bladder was then drained. We confirmed the position of the stent by fluoroscopy. Patient anesthetic was reversed and was taken back to the PACU in good condition. Surgeon: Aristides Alas Type of Anesthesia: General Drains: stent Estimated Blood Loss (mL): 0 Admit VTE Documentation VTE Present on Admission: No VTE Mechan Device Prophylaxis: SCD's VTE Pharm Prophylaxis ordered?: No
[2023-09-22] MEDS: Acetaminophen 325 MG Tablet 650 MG PO (18:22)
[2023-09-22] MEDS: Ciprofloxacin 500 MG Tablet PO (21:16)
[2023-09-22] MEDS: MELATONIN 10 MG TABLET PO (21:16)
[2023-09-23 02:32] VITALS: BP 108/47; PULSE 80; RESP 18; TEMP 36.8; O2SAT 96
[2023-09-23 06:15] LABS: Absolute Lymphocyte Count 0.58 X10^3/uL (0.83-4.51); Absolute Neutrophil Count 1.7 X10^3/uL (2.0-7.7); Eosinophil# 0.03 X10^3/uL; Eosinophils% 1.2 % (0-5); Hematocrit 32.3 % (37-47); Hemoglobin 10.5 g/dL (12.0-15.0); Lymphocyte # 0.58 X10^3/ul (0.83-4.51); Lymphocyte % 22.9 % (19-41); Mean Corp Hgb Conc 32.5 g/dL (32-36); Mean Corpuscular Hgb 29.8 pg (27.0-32.0); Mean Corpuscular Volume 91.8 fL (81-99); Mean Platelet Vol. 12.5 fl (6.2-12.0); Monocyte# 0.23 X10^3/uL; Monocyte% 9.1 % (0-10); NRBC Flagged by Analyzer 0 % (0-5); Neutrophil # 1.68 X10^3/uL (2.7-7.7); Neutrophil % 66.4 % (47-70); POSITIVE COUNT YES; POSITIVE DIFFERENTIAL YES; RBC Distribution Width CV 14.7 % (11.6-14.6); RBC Distribution Width SD 49.9 fl (35.1-43.9); Red Blood Count 3.52 M/mm3 (4.2-5.4); White Blood Count 2.5 K/mm3 (4.4-11.0)
[2023-09-23 06:24] LABS: Differential Indicated SCAN CRITERIA MET; Platelet Count 43 K/mm3 (150-450)
[2023-09-23 06:32] VITALS: BP 112/56; PULSE 79; RESP 18; TEMP 37; O2SAT 94
[2023-09-23 06:38] LABS: Anion Gap 7 (5-15); BUN 12 mg/dL (7-18); BUN/Creat Ratio 14.4 RATIO (10-20); Calcium,Total 7.9 mg/dL (8.5-10.1); Chloride 110 mmol/L (98-107); Creatinine, Serum 0.84 mg/dL (0.55-1.02); EST Glomerular Filtration Rate 70 mL/min (>60); Est Glom Filt Rate - Afr Amer 84 mL/min (>60); Estimated Creatinine Clearance 38.37 ml/min; Glucose 96 mg/dL (74-106); Potassium 3.6 mmol/L (3.5-5.1); Sodium Level 141 mmol/L (136-145)
--- NOTE | 2023-09-23 07:15 | DCINST_ITS ---
Discharge Instructions Diet Discharge Diet: No restrictions Activity Discharge Activity: Return to Normal Activity Weight Bearing Status: Weight bearing as tolerated Dressing / Incision Call your doctor if you observe: Fever of 101 or Higher, Coldness, Increased Pain, Numbness or Tingling, Change in Color, Inability to urinate, Inability to have a bowel movement, Shortness of breath, Dizziness, Fainting spells, Swelling in the ankles, Chest pain, Prolonged hiccupping, Increased palpitations (irregular heartbeat) and Calf discomfort Follow Up Care When: IN 2 WEEKS Test Results: Test results from this visit will be discussed in further detail at your follow- up appointment, if applicable. Discharge Plan Admission Admit Date/Time: 09/20/23 20:22 Primary Reason for Your Visit: Bilateral pyelonephritis with bilateral hydro nephrosis and GNR bacteremia Attending Provider: Maldonado Arauz Primary Care Provider: Jodie Hussein Consulting Providers: El Bourgeois; Julian Franz; Aristides Alas Instructions Additional Instructions / Restrictions: Advised [id number] oxymetazoline nasal spray, 2 sprays twice daily as needed as nasal consistent Discontinue Benadryl as this might be the potential is not causing severe thrombocytopenia. If she still has allergic rhinitis she can take Claritin 24- hour 1 tablet daily. Follow-up with PCP. She will need repeat CBC with differential in 1 week to follow-up for severe thrombocytopenia. This was discussed in detail with the patient. Discharge Orders/Prescriptions Prescriptions: New ciprofloxacin HCl 500 mg Tablet 500 mg PO BID 7 Days Qty: 14 0RF Continued PreserVision AREDS-2 250-90-40-1 mg capsule 1 tab PO BID glucosamine-chondroitin 900 mg tablet 900 mg PO BID Held turmeric root extract 500 mg capsule 500 mg PO DAILY Hold Instructions: Follow with PCP Discontinued diphenhydramine HCl [Benadryl] 25 mg capsule 25 mg PO TID Referrals / Follow Up: Jodie Hussein DO [Primary Care Provider] - Within 1 Week Aristides Alas MD [Med Staff - Active Staff] - Within 2 Weeks (For bilateral hydroureter and ureteric stone.) Disposition Disposition (needs filled in before D/C Order can be placed): Home, Self Care
[2023-09-23] MEDS: Ciprofloxacin 500 MG Tablet PO (08:40)
--- NOTE | 2023-09-23 09:39 | DS.PCM_ITS ---
Providers Date of Admission: 09/20/23 Date of Discharge: 09/23/23 Primary Care Physician: Dr. Jodie Hussein, DO Consultations 09/21/23 10:04 Consult: Urology Routine Consulting Provider: Aristides Alas Reason for Consult: B/L hydro, Pyelonephritis, EMERGENT Consult: No Notified: Yes Date Notified: 09/21/23 Time Notified: 10:05 Method of Notification: Text 09/21/23 10:09 Consult: Infectious Disease Routine Consulting Provider: Julian Franz Reason for Consult: GNR Bacteremia, B/L pyelo EMERGENT Consult: No Notified: Yes Date Notified: 09/21/23 Time Notified: 10:09 Method of Notification: Text Reason For Visit: PYELONEPHRITIS WITH GRAM-NEGATIVE BACTEREMIA Diagnosis Discharge Diagnosis (1) Bacteremia due to Gram-negative bacteria: Status: Acute Code(s): R78.81 - Bacteremia (2) Thrombocytopenia: Status: Acute Code(s): D69.6 - Thrombocytopenia, unspecified (3) Pyelonephritis: Status: Acute Code(s): N12 - Tubulo-interstitial nephritis, not specified as acute or chronic Plan Patient is an 78-year-old female who presented to [facility] ED on 09/20/2023 for pyelonephritis with gram-negative bacteremia. 1. Acute pyelonephritis, gram-negative bacteremia Initial labs obtained during ED visit on 09/19; UA looks infected. Urine culture preliminary positive for gram-negative rods, blood cultures preliminary 2 out of 2 positive for gram-negative rods. Blood culture/PCR results gram- positive cocci in clusters.Patient has leukopenia, and thrombocytopenia H&H was in normal range but is decreased now. WBC count 3.6K on 09/19, low-grade fever to 99.8 F, mild sinus tachycardia to 100s, did not meet sepsis criteria. CT on pelvis 09/19 showed moderate left and mild right hydroureteronephrosis without distinct obstructing stone, with s uspected superimposed pyelonephritis. Urology was consulted. Dr. Alas said that there is a small stone therefore plan for cystoscopy and retrograde stenting tomorrow. ID is consulted.Discussed with ID. PCR bacterial identification of GPC in clusters are pending and will wait. 09/22: Blood culture, bacterial detection PCR shows Staph epidermidis. Urine culture shows Klebsiella pneumonia more than 100,000 colonies. ESBL negative.Plan for cystoscopy today. 09/23: Patient had cystoscopy with left retrograde pyelogram and left stent placement for obstructing left ureteral calculus on 09/22/2023. Patient was instructed to watch out for urine output, about 1-1 and half liter every day. Follow-up with urologist, Dr. Alas in 2 weeks. Prescription given for ciprofloxacin 500 mg twice daily for 7 more days. No fever or chills. Blood culture shows Staph epidermidis is SKIN contamination. Antibiotic discussed with the ID 2. Severe thrombocytopenia, unclear whether acute or chronic: ? Platelets 62 on 09/19, repeat platelets 57 on 09/20. No previous CBC available for baseline. 09/22: Patient platelet count very low 37,000. Patient also has leukopenia and anemia. 09/23: As mentioned below. 3. Mild normocytic anemia ? Hemoglobin 12.5 on 09/19, repeat hemoglobin 11.2 on 09/20, MCV 93. No previous CBC available. Iron studies, B12 and folate ordered. Trend CBC. 09/22: Her hemoglobin further decreased to 10.5. WBC count 2.1 thousand. ALC 0.61. ANC 1.2. [facility] also check but no prior lab values before 09/19.Unclear whether it is due to medication side effect as patient on multiple OTC/herbal medications including Benadryl antiarthritic combination and turmeric root. H1 antagonist including Benadryl has known side effect of hemolytic anemia, thrombocytopenia, agranulocytosis. Pancytopenia and leukopenia. These adverse effects not listed with hydroxyzine. But review of literature shows it may be H1 antagonist adverse effects. Patient takes Benadryl for sleep which is stated to melatonin. 09/23: WBC count and platelet count is on increasing trend. H&H 10.1/32.3 constant. Advised to avoid antiplatelet or anticoagulant agent and patient is not on these medications. Avoid mcgg-byl-uinjwws turmeric. Liver chemistry in normal range. GGT 63. Patient has been taking Benadryl for allergic rhinitis or cold. Advised nasal inhaler oxymetazoline 1 to 2 spray twice daily. Follow with PCP. If still not better can take Claritin 24-hour as per instruction by PCP. Follow-up with PCP for repeat CBC with differential in 1 week. This was discussed in detail with the patient. 4. Obesity ? BMI 37 on admit. Encouraged lifestyle modifications. Complicates hospital course, care and prognosis. 5. History of systolic heart murmur, LVH ? Evaluated by cardiology in 09/2022 after PCP noted murmur on exam. Dr. Mckeon noted a 2/6 systolic murmur at left sternal border radiating toward carotids. Echo showed severe concentric left regular hypertrophy, EF 75%, mild aortic valve calcification. Dr. Mckeon noted that the murmur was suggestive of focal aortic valve calcification with minimal stenosis, patient notably asymptomatic, no further testing required going forward. Total time of the visit including total time spent in counseling or coordination of care, (more than 50% of the total time, spent in obtaining medical information from nurses and other ancillary care providers,explaining to the patient about labs, imaging, diagnosis and management of active complex medical conditions), severe thrombocytopenia, discussion with patient's daughter regarding the causes of thrombocytopenia, clinical course of pyelonephritis and bilateral hydronephrosis, review of labs and imaging is 40 minutes. Microbiology Past 72 Hours 09/20/23 18:22 Blood Culture (Wb) - Anticubital Left Blood Culture - Preliminary No growth in 48 hours. 09/20/23 18:37 Blood Culture (Wb) - Venous Bacteria Detection (PCR) - Final Staphylococcus epidermidis 09/20/23 18:37 Blood Culture (Wb) - Venous Blood Culture - Preliminary Staphylococcus epidermidis Laboratory Results 09/21/23 05:44: Diff Path Review Reviewed 09/22/23 06:44: Diff Path Review Reviewed, Total Bilirubin 0.60, Direct Bilirubin 0.19, GGT 63 H, AST 35, ALT 24, Alkaline Phosphatase 108, Total Protein 6.3 L, Albumin 2.9 L, Globulin 3.4 09/23/23 05:50: WBC 2.5 L, RBC 3.52 L, Hgb 10.5 L, Hct 32.3 L, MCV 91.8, MCH 29.8, MCHC 32.5, RDW Std Deviation 49.9 H, RDW Coeff of Christa 14.7 H, Plt Count 43 L*, MPV 12.5 H, Immature Gran % (Auto) 0.400, Neut % (Auto) 66.4, Lymph % (Auto) 22.9, Houghton % (Auto) 9.1, Eos % (Auto) 1.2, Baso % (Auto) 0.0, Absolute Neuts (auto) 1.7 L, Absolute Lymphs (auto) 0.58 L, Nucleated RBC % 0, Sodium 141, Potassium 3.6, Chloride 110 H, Carbon Dioxide 24.0, Anion Gap 7, BUN 12, Creatinine 0.84, Estim Creat Clear Calc 38.37, Est GFR (MDRD) Af Amer 84, Est GFR (MDRD) Non-Af 70, BUN/Creatinine Ratio 14.4, Glucose 96, Calcium 7.9 L Medications at Discharge Home Medications turmeric root extract 500 mg capsule 500 mg PO DAILY 09/21/22 vit C 250 mg-vit E 90 mg-zinc 40 mg-copper 1 [id number]-hpwxus-rzcsch capsule (PreserVision AREDS-2) 1 tab PO BID 09/21/22 antiarthritic combination no.2 900 mg tablet (glucosamine-chondroitin) 900 mg PO BID 10/05/22 ciprofloxacin HCl 500 mg tablet 500 mg PO BID 7 days #14 tabs 09/23/23 Physical Exam Narrative Seen and examined. Patient WAS admitted with pyelonephritis bilateral with gram-negative jeremy bacteremia. Severe thrombocytopenia proving. No abdominal pain. Physical exam General: Alert, Oriented x3, Cooperative HEENT: Atraumatic, PERRLA, EOMI, Normocephalic Oral: Oral mucosa dry. No Gingival or Mucosal Lesions/ Ulcerations Neck: Supple, No JVD, Negative Carotid Bruits Lungs: Air entry diminished in bilateral lung bases. No crepitation/rhonchi Cardiovascular: Regular rate, Regular Rhythm, Normal S1, Normal S2, systolic murmur Abdomen: Bowel Sounds Present, Soft, Non Tender, Non-Distended : Denies dysuria. No hematuria. No polyuria/oliguria or increased frequency or urgency. No tenderness on the left parasacral region. No renal angle tenderness. No suprapubic tenderness. Extremities: No edema, Capillary Refill Less than 3 Seconds Skin: No rashes, No breakdown Musculoskeletal: No Tenderness to Palpation of Joints or Extremities Neurological: Cranial nerves II-XII grossly intact, DTR 2+/4. No acute focal neurological deficit. Psych/Mental Status: Flat affect Weight / BMI Weight Weight: 192 lb 10.944 oz Body Mass Index (BMI) 37.6 ABG / Lab / Microbiology Data 09/23/23 05:50 09/23/23 05:50 Laboratory: Laboratory Results - last 24 hr 09/21/23 05:44: Diff Path Review Reviewed 09/22/23 06:44: Diff Path Review Reviewed, Total Bilirubin 0.60, Direct Bilirubin 0.19, GGT 63 H, AST 35, ALT 24, Alkaline Phosphatase 108, Total Protein 6.3 L, Albumin 2.9 L, Globulin 3.4 09/23/23 05:50: WBC 2.5 L, RBC 3.52 L, Hgb 10.5 L, Hct 32.3 L, MCV 91.8, MCH 29.8, MCHC 32.5, RDW Std Deviation 49.9 H, RDW Coeff of Christa 14.7 H, Plt Count 43 L*, MPV 12.5 H, Immature Gran % (Auto) 0.400, Neut % (Auto) 66.4, Lymph % (Auto) 22.9, Houghton % (Auto) 9.1, Eos % (Auto) 1.2, Baso % (Auto) 0.0, Absolute Neuts (auto) 1.7 L, Absolute Lymphs (auto) 0.58 L, Nucleated RBC % 0, Sodium 141, Potassium 3.6, Chloride 110 H, Carbon Dioxide 24.0, Anion Gap 7, BUN 12, Creatinine 0.84, Estim Creat Clear Calc 38.37, Est GFR (MDRD) Af Amer 84, Est GFR (MDRD) Non-Af 70, BUN/Creatinine Ratio 14.4, Glucose 96, Calcium 7.9 L Microbiology: Microbiology 09/20/23 18:22 Blood Culture (Wb) - Anticubital Left Blood Culture - Preliminary No growth in 48 hours. 09/20/23 18:37 Blood Culture (Wb) - Venous Bacteria Detection (PCR) - Final Staphylococcus epidermidis 09/20/23 18:37 Blood Culture (Wb) - Venous Blood Culture - Preliminary Staphylococcus epidermidis D/C Instructions Discharge Diet: No restrictions Weight Bearing Status: Weight bearing as tolerated Call your doctor if you observe: Fever of 101 or Higher, Coldness, Increased Pain, Numbness or Tingling, Change in Color, Inability to urinate, Inability to have a bowel movement, Shortness of breath, Dizziness, Fainting spells, Swelling in the ankles, Chest pain, Prolonged hiccupping, Increased palpitations (irregular heartbeat) and Calf discomfort When: IN 2 WEEKS Meaningful Use Info Meaningful Use Diagnoses (Choose all that apply): None applicable Discharge Plan Admission Admit Date/Time: 09/20/23 20:22 Primary Reason for Your Visit: Bilateral pyelonephritis with bilateral hydronephrosis and GNR bacteremia Attending Provider: Maldonado Arauz Primary Care Provider: Jodie Hussein Consulting Providers: lE Bourgeois; Julian Franz; Aristides Alas Instructions Additional Instructions / Restrictions: Advised lvyx-icn-plnapry oxymetazoline nasal spray, 2 sprays twice daily as needed as nasal consistent Discontinue Benadryl as this might be the potential is not causing severe thrombocytopenia. If she still has allergic rhinitis she can take Claritin 24- hour 1 tablet daily. Follow-up with PCP. She will need repeat CBC with d ifferential in 1 week to follow-up for severe thrombocytopenia. This was discussed in detail with the patient. Discharge Orders/Prescriptions Prescriptions: New ciprofloxacin HCl 500 mg Tablet 500 mg PO BID 7 Days Qty: 14 0RF Continued PreserVision AREDS-2 250-90-40-1 mg capsule 1 tab PO BID glucosamine-chondroitin 900 mg tablet 900 mg PO BID Held turmeric root extract 500 mg capsule 500 mg PO DAILY Hold Instructions: Follow with PCP Discontinued diphenhydramine HCl [Benadryl] 25 mg capsule 25 mg PO TID Referrals / Follow Up: Aristides Alas MD [Med Staff - Active Staff] - Within 2 Weeks (For bilateral hydroureter and ureteric stone.) Jodie Hussein DO [Primary Care Provider] - Within 1 Week Disposition Disposition (needs filled in before D/C Order can be placed): Home, Self Care Charges/Coding Visit Charges Inpatient E&M: 67797 Disch Hosp >30min
[2023-09-23 09:46] LABS: Differential Comment SCANNED
[2023-09-23 09:53] LABS: Platelet Estimate MKD DEC (ADEQ)
[2023-09-23 11:00] VITALS: BP 112/51; PULSE 82; RESP 16; TEMP 36.8; O2SAT 95
[2023-09-26 13:55] LABS: Pathologist Review Reviewed
== END 2023-09-23 12:25 | disposition home or self-care (01) | DRG 660 ==
LOC: ED 19:18 → PCU 09-21 01:10
PROVIDERS: Urology; Admitting Provider Hospitalist; Emergency Provider Emergency Medicine; PCP Family Medicine; Visit Provider Internal Medicine
PROC: 0T778DZ Dilation of Left Ureter with Intraluminal Device, Via Natural or Artificial Opening Endoscopic (ICD-10-PCS; principal; 2023-09-22 15:15)
DX: N13.6 Pyonephrosis (principal); D61.818 Other pancytopenia; R78.81 Bacteremia; E87.20 Acidosis, unspecified; D69.6 Thrombocytopenia, unspecified; I70.0 Atherosclerosis of aorta; I35.0 Nonrheumatic aortic (valve) stenosis; J30.9 Allergic rhinitis, unspecified; E66.9 Obesity, unspecified; Z68.37 Body mass index [BMI] 37.0-37.9, adult; B96.89 Other specified bacterial agents as the cause of diseases classified elsewhere
CPT/HCPCS: 36415; 71045; 74176; 76000; 80048; 80053; 80076; 81001; 82607; 82746; 82977; 83540; 83550; 83605; 85025; 85027; 85610; 85730; 87040; 87077; 87086; 87088; 87149; 87186; 87428; 93005; 93971; 94668; 96361; 96365; 99284; J7030; J7050; J7120; A4216; C1769; C2617; J2405

== ENCOUNTER → 2023-10-30 | Outpatient (CLI) | payer MEDICARE, SELFPAY ==
--- OUTSIDE RECORDS SUMMARY | 2023-10-30 09:58 | XMS RPT_ITS | CCD ---
Author Name Unknown Address [address] [place] [address] [address] [place] [address] Organization [facility] Care Team Providers Care Stone Unloader Name Role Phone CARLIE GREGORY DO Primary Care Physician ([phone]) CARLIE GREGORY DO Attending Unavailable CARLIE GREGORY DO Primary Care Unavailable Medications Current Medications Medication Drug Class(es) Dates Sig (Normalized) Sig (Original) Centrum Adults oral tablet (1 source) Start: 04-19-2019 take 1 tablet by mouth once daily Centrum Adults oral tablet Oral, qDay, 0 Refill(s) Start Date: 04/19/19 Status: Ordered Chondroitin Sulfates / Glucosamine (1 source) Start: 08-15-2023 Osteo Bi-Flex 250 mg-200 mg oral tablet BID, 0 Refill(s) Start Date: 08/15/23 Status: Ordered ciprofloxacin 500 mg oral tablet (1 source) Quinolone Antimicrobial Start: 10-05-2023 End: 10-15-2023 ciprofloxacin 500 mg oral tablet Dose : 500 mg = 1 tab(s), Oral, q12h, # 20 tab(s), 0 Refill(s), 89 Start Date: 10/05/23 Stop Date: 10/15/23 Status: Ordered DME MISCellaneous (1 source) Start: 10-11-2022 DME MISCellaneous See Instructions, Rollator walker with seat. Ht 151cm; wt 88kg. Dx balance problems, # 1 EA, 0 Refill(s), Pharmacy: [id number], Balance problems, 151.5, cm, 10/11/22 14:04:00 EST, Height, 88.5 Start Date: 10/11/22 Status: Ordered loratadine 10 mg oral tablet (1 source) Start: 10-05-2023 Claritin 10 mg oral tablet Dose : 10 mg = 1 tab(s), Oral, qDay, # 30 tab(s), 2 Refill(s) Start Date: 10/05/23 Status: Ordered PreserVision AREDS 2 oral capsule (1 source) Start: 06-30-2021 take 1 capsule by mouth twice daily PreserVision AREDS 2 oral capsule Dose = 1 cap(s), Oral, BID, # 60 cap(s), 0 Refill(s) Start Date: 06/30/21 Status: Ordered Problems Problem Classification Problem Date Documented Da te Episodic/Chronic Bacterial infection; unspecified site (2 sources) Bacteremia; Translations: [Bacteremia] Episodic Cancer of uterus (1 source) History of malignant neoplasm of endometrium 06-30-2021 Episodic Coagulation and hemorrhagic disorders (2 sources) Thrombocytopenic disorder; Translations: [Thrombocytopenia, unspecified] Chronic Deficiency and other anemia (2 sources) Anemia; Translations: [Anemia, unspecified] Episodic Glaucoma (1 source) Glaucoma 06-30-2021 Chronic Heart valve disorders (1 source) Systolic murmur 07-06-2022 Episodic Menopausal disorders (1 source) Menopausal problem 04-18-2019 Chronic Osteoarthritis (1 source) Osteoarthritis 07-11-2023 Chronic Other aftercare (1 source) Follow-up status; Translations: [Encounter for follow-up examination after completed treatment for conditions other than malignant neoplasm] Episodic Other aftercare (1 source) Post-discharge follow-up 10-05-2023 Episodi c Other nervous system disorders (1 source) Impairment of balance 10-11-2022 Episodic Other nutritional; endocrine; and metabolic disorders (1 source) Body mass index 30+ - obesity 06-30-2021 Chronic Other nutritional; endocrine; and metabolic disorders (1 source) Body mass index 40+ - severely obese 06-17-2020 Chronic Other screening for suspected conditions (not mental disorders or infectious disease) (2 sources) CT of abdomen abnormal; Translations: [Viral screening status] 10-05-2023 Episodic Other upper respiratory disease (1 source) Anterior epistaxis 08-15-2023 Episodic Other upper respiratory infections (1 source) Acute upper respiratory infection 08-15-2023 Episodic Residual codes; unclassified (1 source) Bilateral lower limb edema 07-11-2023 Episodic Residual codes; unclassified (1 source) Needs influenza immunization 06-17-2020 Episodic Residual codes; unclassified (1 source) Requires vaccination 06-30-2021 Episodic Unclassified (1 source) Influenza vaccination status 07-06-2022 Unclassified (1 source) Never used tobacco 07-11-2023 Unclassified (7 sources) Patient encounter status 04-19-2019 Urinary tract infections (1 source) Pyelonephritis 10-05-2023 Episodic Results Test Name Value Interpretation Reference Range Facil ity Encounters Encounter Date Encounter Type Care Provider Facility Start: 10-05-2023 End: 10-06-2023 ambulatory CARLIE GREGORY DO Facility:[facility] Start: 10-05-2023 End: 10-05-2023 Patient encounter procedure CARLIE GREGORY DO [facility] Procedures Date Procedure Procedure Detail Performing Clinician Start: 03-18-2010 Ileotomy CARLIE GARCIA DO Start: 11-19-2009 Operation on colon YARELIS BUTCH GREGORY DO Start: 10-26-2009 Cholecystectomy CALRIE GREGORY DO Immunizations Immunization Date Immunization Notes Care Provider [facility] 07-05-2023 influenza virus vacc ine, unspecified formulation CARLIE GREGORY DO [facility] 07-05-2023 SARS-CoV-2 mRNA (exoolbgfokm-ajnw-ucjkft e) vaccine CARLIE GREGORY DO [facility] 11-20-2022 tetanus toxoid, redu bharat diphtheria toxoid, and acellular pertussis vaccine, adsorbed CARLIE GREGORY DO [facility] 07-04-2022 SARS-CoV-2 (CV19)mRNA-1273 bivalent vac CARLIE GREGORY DO [facility] 06-28-2022 influenza virus vacc ine, unspecified formulation CARLIE GREGORY DO [facility] 08-27-2021 SARS-CoV-2 mRNA (tozinameran) vaccine CARLIE GREGORY DO [facility] 06-30-2021 pneumococcal polysaccharide vaccine, 23 valent; Translations: [Pneumovax 23] CARLIE GREGORY DO [facility] Payers Date Payer Category Payer Unknown [id number] 1945 Unknown [id number] Social History Date Type Detail Facility Start: 04-18-2019 Tobacco smoking status Never s moked tobacco (finding) [facility] Evaluation + Plan note Radiology Note Date & Type Note Facility Evaluation + Plan note Future Appointments Appointment Date:01/04/2024 11:30:00 AM Scheduled Provider:CARLIE GREGORY DO Location:[facility] Appointment Type: OV Future Scheduled TestsCT Liver/Pelvis 10/05/23 [facility] Hospital course Narrative Note Date & Type Note Facility Hospital course Narrative No data available for this section [facility] Hospital Discharge instructions Note Date & Type Note Facility Hospital Discharge instructions No data available for this section [facility] Progress note Note Date & Type Note Facility Progress note No data available for this section [facility] Summary Purpose Family History No Family History Records Found Advance Directives No Advanced Directives Records Found Additional Source Comments Patient Care team informatio n (unrecognized section and content) Care Team Personnel Name: CARLIE GREGORY DO Position: P4 Physician - Primary Care Member Role: Primary Care Physician Address: Address: [address] [place] [address]- [place] Name: GWEN BLACKMAN MD Member Role: Restaurant Kitchen And Service Manager Address: Address[address] [place], [place] [address] Name: NéstorarunRhiannon Position: Quality Review Member Role: Waste Disposal Plant Operator Care Team Related Persons Name: BARBI JOHNSON INFORMATION SOURCE (unrecogn ized section and content) FOR RECORDS PERTAINING TO PATIENTS WHO ARE OR HAVE BEEN ENROLLED IN A CHEMICAL DEPENDENCY/SUBSTANCEABUSE PROGRAM, SOME INFORMATION MAY BE OMITTED. This clinical summary was aggregated from multiple sources. Caution should be exercised in using it in the provision of clinical care. This summary normalizes information from multiple sources, and as a consequence, information in this document may materially change the coding, format and clinical context of patient data. In addition, data may be omitted in some cases. CLINICAL DECISIONS SHOULD BE BASED ON THE PRIMARY CLINICAL RECORDS. [facility] [employer] provides no warranty or guarantee of the accuracy or completeness of information in this document.
[2023-10-30 10:09] LABS: Hematocrit 38.2 % (37-47); Hemoglobin 11.7 g/dL (12.0-15.0); Mean Corp Hgb Conc 30.6 g/dL (32-36); Mean Corpuscular Hgb 28.9 pg (27.0-32.0); Mean Corpuscular Volume 94.3 fL (81-99); Mean Platelet Vol. 12.1 fl (6.2-12.0); POSITIVE COUNT YES; Platelet Count 79 K/mm3 (150-450); RBC Distribution Width CV 14.8 % (11.6-14.6); RBC Distribution Width SD 51.6 fl (35.1-43.9); Red Blood Count 4.05 M/mm3 (4.2-5.4); White Blood Count 4.3 K/mm3 (4.4-11.0)
[2023-10-30 10:12] LABS: Scan Indicated on CBC? Y/N YES- FLAGS NOTED
[2023-10-30 10:41] LABS: Differential Comment SCANNED
== END | disposition home or self-care (01) ==
LOC: LAB 09:23
PROVIDERS: PCP Family Medicine; Referring Provider Family Medicine; Visit Provider Family Medicine
DX: D69.6 Thrombocytopenia, unspecified (principal); D50.9 Iron deficiency anemia, unspecified
CPT/HCPCS: 36415; 85027

== ENCOUNTER → 2024-05-29 | Outpatient (CLI) | payer MEDICARE, SELFPAY ==
[2024-05-29 17:38] LABS: Hemoglobin 11.5 g/dL (12.0-15.0); Mean Corp Hgb Conc 31.9 g/dL (32-36); Mean Corpuscular Hgb 30.4 pg (27.0-32.0); Mean Corpuscular Volume 95.2 fL (81-99); POSITIVE COUNT YES; Platelet Count 70 K/mm3 (150-450); RBC Distribution Width CV 14.1 % (11.6-14.6); RBC Distribution Width SD 49.1 fl (35.1-43.9); Red Blood Count 3.78 M/mm3 (4.2-5.4); White Blood Count 3.8 K/mm3 (4.4-11.0)
[2024-05-29 17:46] LABS: International Normalized Ratio 1.1; Partial Thromboplast Time 45.2 Seconds (24.1-36.2); Prothrombin Time (Protime)PT. 14.4 SECONDS (11.7-14.9)
[2024-05-29 17:56] LABS: Scan Indicated on CBC? Y/N YES- FLAGS NOTED
[2024-05-29 18:06] LABS: AST(SGOT) 19 U/L (15-37); Alanine Aminotransfer ALT/SGPT 21 U/L (13-56); Albumin, Serum 3.6 g/dL (3.2-5.0); Alkaline Phosphatase 110 U/L (45-117); Anion Gap 4 (5-15); BUN 15 mg/dL (7-18); BUN/Creat Ratio 16.7 RATIO (10-20); Calcium,Total 9.6 mg/dL (8.5-10.1); Chloride 108 mmol/L (98-107); EST Glomerular Filtration Rate 64 mL/min (>60); Est Glom Filt Rate - Afr Amer 77 mL/min (>60); Globulin 3.6 g/dL (2.2-4.2); Glucose 87 mg/dL (74-106); Potassium 3.8 mmol/L (3.5-5.1); Protein, Total 7.2 g/dL (6.4-8.2); Sodium Level 141 mmol/L (136-145)
[2024-05-31 12:09] LABS: AFP, Tumor Marker < 1.8 ng/mL (0.0-8.7)
== END | disposition home or self-care (01) ==
LOC: MTLAB 14:10
PROVIDERS: PCP Family Medicine; Referring Provider Internal Medicine Gastroenterology; Visit Provider Internal Medicine Gastroenterology
DX: K74.60 Unspecified cirrhosis of liver (principal)
CPT/HCPCS: 36415; 80053; 82105; 85027; 85610; 85730

== ENCOUNTER 2024-06-26 01:48 | Emergency (ER) | payer MEDICARE, SELFPAY ==
[2024-06-26 01:55] VITALS: BP 134/60; PULSE 70; RESP 18; TEMP 36.5; O2SAT 98; BMI 37.3
--- NOTE | 2024-06-26 02:19 | EDS_ITS ---
HPI History of Present Illness Chief Complaint: Nausea/Vomiting Informant: patient and EMS Narrative Narrative: 79-year-old female states she got up. In the middle the night and immediately felt dizzy. She states that she has a hole in her eardrum and intermittently gets this. She typically will take a [id number] motion sickness medicine which helps. Tonight she states she could not really stand because of nausea and dry heaves. She denies any fevers or abdominal pain. She felt fine when she went to bed. She feels a sensation of room spinning and off-balance. She denies any chest pain or palpitations. Biggest complaint while I am in the room is that her mouth is very dry [facility] Medical History Pyelonephritis Abnormal echocardiogram Osteoporosis Endometrial cancer Obesity (BMI 30-39.9) Glaucoma Home Medications ?Medication ?Instructions ?Recorded ?Last Taken ?Type turmeric root extract 500 mg 500 mg PO DAILY 09/21/22 Unknown History capsule vit C 250 mg-vit E 90 mg-zinc 40 1 tab PO BID 09/21/22 Unknown History mg-copper 1 dl-[id number]-eikyjb capsule (PreserVision AREDS-2) antiarthritic combination no.2 900 900 mg PO BID 10/05/22 Unknown History mg tablet (glucosamine-chondroitin) ciprofloxacin HCl 500 mg tablet 500 mg PO BID 7 days #14 tabs 09/23/23 Unknown Rx Allergy/AdvReac Type Severity Reaction Status Date / Time No Known Allergies Allergy Verified 06/26/24 01:59 Family History Sister Cancer Sister Cancer Father Diabetes Surgical History History of hysterectomy History of colon surgery (~11/19/09) History of cholecystectomy (~10/2009) History of ileostomy (03/18/10) Social History Smoking Status: Never smoker alcohol intake: never substance use type: does not use caffeine: No ROS ROS ED ROS Narrative Dizziness Constitutional Constitutional ED: Denies chills or weight loss Eyes Eyes: Denies change in vision or diplopia ENT ENT ED: Reports other Details: Dry mouth ; Denies ear pain, rhinorrhea or sore throat Cardiovascular Cardiovascular: Denies chest pain, orthopnea, palpitations or racing heartbeat Respiratory/Chest Respiratory/Chest: Denies cough, dyspnea or orthopnea Gastrointestinal Gastrointestinal: Reports nausea; Denies abdominal pain, diarrhea or vomiting Genitourinary Genitourinary ED: Denies dysuria, hematuria or urinary frequency Musculoskeletal Musculoskeletal: Denies arthralgias or myalgias Integumentary Denies abscess or rash Neurologic Neurologic: Denies headache(s), paresthesias or weakness Psychiatric Psychiatric: Denies anxiety, depression, suicidal ideation or suicidal thoughts Endocrine Endocrinology: Denies polydipsia, polyphagia or polyuria Allergic/Immunologic Allergic/Immunologic ED: Denies mouth swelling, tongue swelling or urticaria EXAM Physical Exam Const Vital Signs: 06/26/24 01:55 06/26/24 03:48 Temperature 97.7 F L Temperature Source Oral Pulse Rate 70 67 Respiratory Rate 18 15 Blood Pressure 134/60 H 157/83 H Blood Pressure Mean 84 107 Pulse Ox 98 99 Oxygen Delivery Method Room Air Room Air Positive well nourished and well developed General Appearance ED: well developed HEENT Reports normocephalic, head/scalp atraumatic and dry mucous membranes HEENT Narrative: I do not appreciate nystagmus. Patient seems worse when she attempts to move. Mouth ED: Yes dry mucous membranes Mouth: dry mucous membranes Eyes PERRL and EOMs intact bilaterally Neck no lymphadenopathy, supple and no JVD Resp normal respiratory effort and clear to auscultation bilaterally Cardio regular rate, regular rhythm and no murmurs GI normal to inspection, nondistended, normoactive bowel sounds and non-tender Palpation: soft Back/Spine no CVA tenderness and normal ROM Extremity normal to inspection General Extremety ED: Negative for edema General Extremity: Negative for edema Neuro oriented x3 and CN's II-XII intact bilaterally Sensorium / Orientation: alert Motor Exam: strength 5/5 throughout Psych mental status grossly normal Mood & Affect: Negative for depressed or tearful Skin no rashes or lesions noted and no wounds MDM MDM MDM Narrative Medical decision making narrative: Differential diagnosis includes but not limited to vomiting dehydration electrolyte abnormalities vertigo stroke hypertensive urgency dehydration Basic blood work strange white count 3.7 11.8 platelet count of 68. Patient sodium potassium within normal limits glucose of 152 BUN of 15 creatinine 0.91. Patient received a dose of Zofran as well as IV fluids and she received 2.5 mg of diazepam. Shortly after the Zofran the patient was able to fall asleep and was noted that the patient was having hypoxia but only when she slept. She denies that she has CPAP at home and it was recommended that she discuss a possible sleep study with her doctor. At this point overall the patient is doing better believe she can be discharged home I will write for some Zofran. History & Record Review Discussion w/independent historian: Patient Lab Data Attestation: I reviewed the patient's lab results. Labs: Laboratory Results - last 24 hr 06/26/24 02:30 WBC 3.7 L RBC 3.92 L Hgb 11.8 L Hct 36.0 L MCV 91.8 MCH 30.1 MCHC 32.8 RDW Std Deviation 47.0 H RDW Coeff of Christa 14.0 Plt Count 68 L MPV 11.9 Immature Gran % (Auto) 0.500 Neut % (Auto) 66.9 Lymph % (Auto) 24.3 [place] % (Auto) 7.3 Eos % (Auto) 0.5 Baso % (Auto) 0.5 Absolute Neuts (auto) 2.5 Absolute Lymphs (auto) 0.90 Nucleated RBC % 0 Sodium 140 Potassium 3.5 Chloride 109 H Carbon Dioxide 21.0 Anion Gap 10 BUN 15 Creatinine 0.91 Estim Creat Clear Calc 47.41 Est GFR (MDRD) Af Amer 77 Est GFR (MDRD) Non-Af 63 BUN/Creatinine Ratio 16.6 Glucose 152 H Calcium 9.3 Discharge Plan Triage Chief Complaint: Nausea/Vomiting ED Provider: David Putnam Dx/Rx/DC Orders Prescriptions: No Action PreserVision AREDS-2 250-90-40-1 mg capsule 1 tab PO BID turmeric root extract 500 mg capsule 500 mg PO DAILY glucosamine-chondroitin 900 mg tablet 900 mg PO BID ciprofloxacin HCl 500 mg Tablet 500 mg PO BID 7 Days Qty: 14 0RF Primary Care Provider: Jodie Hussein Referrals: Jodie Hussein DO [Primary Care Provider] - Print Language: Maltese
[2024-06-26] MEDS: diazePAM 5 MG Tablet 2.5 MG PO (02:30)
[2024-06-26] MEDS: Ondansetron 4 MG/2 ML Vial IV (02:30)
[2024-06-26] MEDS: 0.9% Normal Saline (500mL Bag) 500 ML 999 ML IV (02:31)
[2024-06-26 02:37] LABS: Absolute Neutrophil Count 2.5 X10^3/uL (2.0-7.7); Basophil# 0.02 X10^3/uL; Basophil% 0.5 % (0-1); Eosinophil# 0.02 X10^3/uL; Eosinophils% 0.5 % (0-5); Hemoglobin 11.8 g/dL (12.0-15.0); Lymphocyte % 24.3 % (19-41); Mean Corp Hgb Conc 32.8 g/dL (32-36); Mean Corpuscular Hgb 30.1 pg (27.0-32.0); Mean Corpuscular Volume 91.8 fL (81-99); Mean Platelet Vol. 11.9 fl (6.2-12.0); Monocyte# 0.27 X10^3/uL; Monocyte% 7.3 % (0-10); NRBC Flagged by Analyzer 0 % (0-5); Neutrophil # 2.47 X10^3/uL (2.7-7.7); Neutrophil % 66.9 % (47-70); POSITIVE COUNT YES; Platelet Count 68 K/mm3 (150-450); Red Blood Count 3.92 M/mm3 (4.2-5.4); White Blood Count 3.7 K/mm3 (4.4-11.0)
[2024-06-26 02:39] LABS: Differential Indicated SCAN CRITERIA MET
[2024-06-26 02:51] LABS: Anion Gap 10 (5-15); BUN 15 mg/dL (7-18); BUN/Creat Ratio 16.6 RATIO (10-20); Calcium,Total 9.3 mg/dL (8.5-10.1); Chloride 109 mmol/L (98-107); Creatinine, Serum 0.91 mg/dL (0.55-1.02); EST Glomerular Filtration Rate 63 mL/min (>60); Est Glom Filt Rate - Afr Amer 77 mL/min (>60); Estimated Creatinine Clearance 47.41 ml/min; Glucose 152 mg/dL (74-106); Potassium 3.5 mmol/L (3.5-5.1); Sodium Level 140 mmol/L (136-145)
[2024-06-26 03:48] VITALS: BP 157/83; PULSE 67; RESP 15; O2SAT 99
[2024-06-26 04:33] VITALS: BP 124/80; PULSE 73; RESP 18; TEMP 36.6; O2SAT 100
== END 2024-06-26 04:41 | disposition home or self-care (01) ==
PROVIDERS: Emergency Provider Emergency Medicine; PCP Family Medicine; Visit Provider Emergency Medicine
DX: R11.2 Nausea with vomiting, unspecified (principal); Z90.710 Acquired absence of both cervix and uterus; Z90.49 Acquired absence of other specified parts of digestive tract
CPT/HCPCS: 80048; 85025; 96361; 96374; 99283; J7030; A4216; J2405

== ENCOUNTER → 2024-11-06 | Outpatient (CLI) | payer MEDICARE, SELFPAY ==
[2024-11-06 15:24] LABS: International Normalized Ratio 1.1; Prothrombin Time (Protime)PT. 14.4 SECONDS (11.7-14.9)
[2024-11-06 15:25] LABS: Partial Thromboplast Time 41.5 Seconds (24.1-36.2)
[2024-11-06 15:50] LABS: AST(SGOT) 20 U/L (15-37); Alanine Aminotransfer ALT/SGPT 16 U/L (13-56); Albumin, Serum 3.6 g/dL (3.2-5.0); Alkaline Phosphatase 106 U/L (45-117); Anion Gap 7 (5-15); BUN 14 mg/dL (7-18); BUN/Creat Ratio 16.6 RATIO (10-20); Calcium,Total 9.6 mg/dL (8.5-10.1); Chloride 108 mmol/L (98-107); Creatinine, Serum 0.84 mg/dL (0.55-1.02); EST Glomerular Filtration Rate 69 mL/min (>60); Est Glom Filt Rate - Afr Amer 83 mL/min (>60); Globulin 3.6 g/dL (2.2-4.2); Glucose 102 mg/dL (74-106); Potassium 4.3 mmol/L (3.5-5.1); Protein, Total 7.2 g/dL (6.4-8.2); Sodium Level 142 mmol/L (136-145)
[2024-11-08 04:07] LABS: AFP, Tumor Marker < 1.8 ng/mL (0.0-8.7)
== END | disposition home or self-care (01) ==
LOC: MTLAB 11:43
PROVIDERS: PCP Family Medicine; Referring Provider Internal Medicine Gastroenterology; Visit Provider Internal Medicine Gastroenterology
DX: K74.60 Unspecified cirrhosis of liver (principal)
CPT/HCPCS: 36415; 80053; 82105; 85610; 85730

== ENCOUNTER → 2025-06-16 | Outpatient (CLI) | payer MEDICARE, SELFPAY ==
[2025-06-16 18:10] LABS: Hematocrit 37.2 % (37-47); Hemoglobin 12.4 g/dL (12.0-15.0); Mean Corp Hgb Conc 33.3 g/dL (32-36); Mean Corpuscular Volume 96.1 fL (81-99); Mean Platelet Vol. 11.4 fl (6.2-12.0); POSITIVE COUNT YES; Platelet Count 97 K/mm3 (150-450); RBC Distribution Width CV 13.8 % (11.6-14.6); RBC Distribution Width SD 48.7 fl (35.1-43.9); Red Blood Count 3.87 M/mm3 (4.2-5.4); White Blood Count 5.4 K/mm3 (4.4-11.0)
[2025-06-16 18:47] LABS: Prothrombin Time (Protime)PT. 14.6 SECONDS (11.7-14.9)
[2025-06-16 18:48] LABS: Partial Thromboplast Time 42.9 Seconds (24.1-36.2)
[2025-06-16 18:53] LABS: AST(SGOT) 25 U/L (<=31); Alanine Aminotransfer ALT/SGPT 16 U/L (<=34); Albumin, Serum 4.2 g/dL (3.4-4.8); Alkaline Phosphatase 113 U/L (35-104); Anion Gap 13 (5-15); BUN 23 mg/dL (4-19); BUN/Creat Ratio 20.1 RATIO (10-20); Calcium,Total 10.0 mg/dL (7.6-11.0); Carbon Dioxide 24.0 mmol/L (21.0-32.0); Chloride 101 mmol/L (98-108); Globulin 3.1 g/dL (2.2-4.2); Glucose 90 mg/dL (70-99); Potassium 4.6 mmol/L (3.3-5.1)
== END | disposition home or self-care (01) ==
PROVIDERS: PCP Family Medicine; Referring Provider Internal Medicine Gastroenterology; Visit Provider Internal Medicine Gastroenterology
DX: K74.60 Unspecified cirrhosis of liver (principal)
CPT/HCPCS: 80053; 82105; 85027; 85610; 85730